=== PATIENT | male | born 1960 | race Caucasian/White ===

== ENCOUNTER 2016-11-18 05:51 | Emergency (ER) | payer OTHER ==
[2016-11-18] MEDS ORDERED: METHADONE 10 MG TAB PO STA (06:13)
--- NOTE | 2016-11-18 06:48 | ED ---
Abdominal Pain HPI - General Chief Complaint: Abdominal Pain Stated Complaint: Abdominal/Chest Pain Time Seen by Provider: 11/18/16 06:09 Source: patient, RN notes reviewed Mode of arrival: wheelchair Limitations: no limitations - History of Present Illness Initial Comments: This patient is a 56-year-old man who presents with the complaint that he is having abdominal cramping, nausea, vomiting and diarrhea. The symptoms developed over the course of last night worsening into this morning. The patient does note that yesterday he was scheduled to see Dr. John at 8:30 in the morning to have his morphine prescription refilled. He takes this for chronic back pain. The patient notes that he had slept through his appointment and when he called he was informed that he could not be fit into the clinic schedule that day and that he would have to follow up today. MD Complaint: abdominal pain -: days(s) Location: diffuse Severity: moderate Quality: cramping Associated Symptoms: nausea, vomiting, diarrhea - Related Data Home Medications Medication Instructions Recorded Confirmed Baclofen [Lioresal] 20 mg PO BID 11/18/16 11/18/16 Morphine Sulfate [Morphine Sulfate 30 mg PO BID 11/18/16 11/18/16 ER] Varenicline Tartrate [Chantix] 1 mg PO BID 11/18/16 11/18/16 Allergies Allergy/AdvReac Type Severity Reaction Status Date / Time aspirin AdvReac SKIN Verified 11/18/16 07:40 BLOTCHES Review of Systems ROS Statement: Those systems with pertinent positive or pertinent negative responses have been documented in the HPI. ROS Other: All systems not noted in ROS Statement are negative. Constitutional: Denies: fever, chills Respiratory: Denies: cough, dyspnea Cardiovascular: Denies: chest pain, palpitations, syncope Gastrointestinal: Reports: abdominal pain, nausea, vomiting, diarrhea. Denies: constipation, melena, hematochezia Genitourinary: Denies: dysuria, hematuria Musculoskeletal: Denies: back pain Skin: Denies: rash Neurological: Denies: headache, weakness, numbness Past Medical History Additional Past Medical History / Comment(s): HX HYPOGLYCEMIA, DEGENERATIVE DISC DISEASE- NECK & BACK, SLEEPS VERY POORLY, INGUINAL AND UMBILICAL HERNIA History of Any Multi-Drug Resistant Organisms: None Reported Past Surgical History: Appendectomy, Hernia Repair, Orthopedic Surgery, Tonsillectomy Additional Past Surgical History / Comment(s): SCOPE ON ONE KNEE 1994- [facility], COLONOSCOPY Past Anesthesia/Blood Transfusion Reactions: No Reported Reaction Past Psychological History: No Psychological Hx Reported Smoking Status: Current every day smoker Past Alcohol Use History: Daily, Heavy Additional Past Alcohol Use History / Comment(s): SMOKER SINCE AGE 12(1972) DRINKS 6-8 BEERS A DAY S Past Drug Use History: Marijuana Additional Drug Use History / Comment(s): USES NIGHTLY TO HELP HIM SLEEP- SLEEPS POORLY, INSTRUCTED NOT TO USE 24 HRS PRIOR TO PROCEDURE - Past Family History Father Family Medical History: COPD Additional Family Medical History / Comment(s): 11/18/2014 Brother(s) Family Medical History: Cancer Additional Family Medical History / Comment(s): PT'S YOUNGER BROTHER HAS STAGE 4 CA-STARTED IN COLON- NOW IN [place] & BON[place] General Exam Limitations: no limitations General appearance: alert, in no apparent distress Head exam: Present: atraumatic, normocephalic, normal inspection Eye exam: Present: normal appearance. Absent: scleral icterus, conjunctival injection ENT exam: Present: mucous membranes dry Respiratory exam: Present: normal lung sounds bilaterally. Absent: respiratory distress, wheezes, rales, rhonchi, stridor Cardiovascular Exam: Present: normal rhythm, tachycardia, normal heart sounds. Absent: systolic murmur, diastolic murmur, rubs, gallop GI/Abdominal exam: Present: soft, diminished bowel sounds. Absent: distended, tenderness, guarding, rebound, mass Extremities exam: Present: normal inspection, normal capillary refill. Absent: pedal edema, calf tenderness Back exam: Present: normal inspection. Absent: CVA tenderness (R), CVA tenderness (L) Neurological exam: Present: alert Skin exam: Present: warm, intact, diaphoretic. Absent: rash Course Vital Signs 11/18/16 11/18/16 06:01 08:25 Temperature 97.8 F 97.7 F Pulse Rate 116 H 106 H Respiratory 20 17 Rate Blood Pressure 103/78 113/84 O2 Sat by Pulse 99 91 L Oximetry Medical Decision Making - EKG Data -: EKG Interpreted by Ne EKG shows normal: sinus rhythm, axis (Normal), intervals (Normal) Rate: tachycardia (Rate approximately 117 bpm) Interpretation: nonspecific ST-T wave changes, other (Biatrial enlargement) Disposition Clinical Impression: Opioid withdrawal Disposition: HOME SELF-CARE Condition: Fair Instructions: Opioid Withdrawal (ED) Referrals: Blu Lane DO [Primary Care Provider] - 1-2 days
[2016-11-18] MEDS ORDERED: MORPHINE SULFATE 4 MG/ML SYRINGE IV STA (07:30)
[2016-11-18] MEDS ORDERED: ONDANSETRON 4 MG/2 ML VIAL IVP STA (07:53)
[2016-11-18 08:26] VITALS: BP 113/84; PULSE 106; RESP 17; TEMP 97.7
== END 2016-11-18 08:38 | disposition home or self-care (01) ==
LOC: EC 05:51
DX: F11.23 Opioid dependence with withdrawal (principal); R00.0 Tachycardia, unspecified; R11.2 Nausea with vomiting, unspecified; F17.200 Nicotine dependence, unspecified, uncomplicated; Z87.19 Personal history of other diseases of the digestive system; Z79.899 Other long term (current) drug therapy; Z88.6 Allergy status to analgesic agent; Z90.49 Acquired absence of other specified parts of digestive tract
CPT/HCPCS: 93005; 99284; 96374; 96375; J2270; J2405; S0109

== ENCOUNTER → 2017-12-30 | Outpatient (CLI) | payer OTHER ==
--- NOTE | 2017-12-30 12:23 | CT ---
EXAMINATION TYPE: CT chest w con DATE OF EXAM: 12/30/2017 COMPARISON: May 19, 2015 HISTORY: Pulmonary nodule CT DLP: 507 mGycm Automated exposure control for dose reduction was used. CONTRAST: CT scan of the chest is performed with IV Contrast, patient injected with 100 mL of Isovue 300. FINDINGS: LUNGS: Severe upper lobe emphysematous change. No distinct pulmonary nodule or mass. No infiltrate or volume loss. Calcified granuloma right upper lobe. MEDIASTINUM: There are no greater than 1 cm hilar or mediastinal lymph nodes. No pericardial effusi on is seen. Thoracic aorta is of normal caliber. The heart is not enlarged. UPPER ABDOMEN: No significant abnormality appreciated. OTHER: No additional significant abnormality is seen. IMPRESSION: 1. No concerning pulmonary nodule. 2. Upper lobe emphysematous change.
== END | disposition home or self-care (01) ==
LOC: RADCTMAIN 11:10
PROVIDERS: ATTEND Family Medicine
DX: J43.9 Emphysema, unspecified (principal)
CPT/HCPCS: 71260; Q9967

== ENCOUNTER → 2018-02-10 | Outpatient (CLI) | payer OTHER ==
--- NOTE | 2018-02-10 11:54 | ECHOF ---
Referral Reason:R07.9 Chest pain MEASUREMENTS -------- HEIGHT: 180.3 cm WEIGHT: 72.6 kg BP: IVSd: 0.9 cm (0.6 - 1.1) LVIDd: 3.7 cm (3.9 - 5.3) LVPWd: 1.0 cm (0.6 - 1.1) IVSs: 1.7 cm LVIDs: 2.4 cm LVPWs: 1.4 cm LAESV Index (A-L): 15.71 ml/m Ao Diam: 3.7 cm (2.0 - 3.7) AV Cusp: 1.8 cm (1.5 - 2.6) LA Diam: 2.9 cm (2.7 - 3.8) MV EXCURSION: 25.336 mm (> 18.000) MV EF SLOPE: 280 mm/s (70 - 150) EPSS: 1.2 cm MV E Nghia: 0.49 m/s MV DecT: 252 ms MV A Nghia: 0.53 m/s MV E/A Ratio: 0.93 RAP: 5.00 mmHg RVSP: 15.39 mmHg FINDINGS -------- Sinus rhythm. This was a technically good study. The left ventricular size is normal. Left ventricular wall thickness is normal. Overall left vent ricular systolic function is low-normal with, an EF between 50 - 55 %. The right ventricle is normal in size. The left atrium is normal in size. The right atrium is normal in size. The aortic valve is trileaflet, and appears structurally normal. No aortic stenosis or regurgitation. The mitral valve leaflets are mildly thickened. Mild mitral regurgitation is present. Mild tricuspid regurgitation present. The right ventricular systolic pressure, as measured by Doppl er, is 15.39mmHg. Pulmonic valve appears structurally normal. The aortic root size is normal. The pericardium is normal. CONCLUSIONS -------- 1. Sinus rhythm. 2. This was a technically good study. 3. The left ventricular size is normal. 4. Left ventricular wall thickness is normal. 5. Overall left ventricular systolic function is low-normal with, an EF between 50 - 55 %. 6. The right ventricle is normal in size. 7. The left atrium is normal in size. 8. The right atrium is normal in size. 9. The aortic valve is trileaflet, and appears structurally normal. No aortic stenosis or regurgitati on. 10. The mitral valve leaflets are mildly thickened. 11. Mild mitral regurgitation is present. 12. Mild tricuspid regurgitation present. 13. The right ventricular systolic pressure, as measured by Doppler, is 15.39mmHg. 14. Pulmonic valve appears structurally normal. 15. The aortic root size is normal. 16. The pericardium is normal. [place]: Gladys Padron RDCS
--- NOTE | 2018-02-10 14:08 | EST ---
EXERCISE STRESS AGE: 57 SEX: M HT: 70 WT: 160 PROTOCOL: Gumaro Stress Test STAGE: III DURATION OF EXERCISE: 9:00 HEART RATE REST: 83 BLOOD PRESSURE REST: 114/80 MAXIMUM HEART RATE ACHIEVED: 140 MAXIMUM BLOOD PRESSURE: 172/76 85% MPHR: 138 100% MPHR: 162 METS: 10.5 INDICATIONS: Chest pain. CLINICAL INFORMATION: STRESS DATA: Pretesting physical examination showed a heart rate of 83, pressure is 114/80 mmHg. Baseline EKG showed sinus mechanism. The patient exercised on the treadmill according to Gumaro protocol for a total of 9 minutes and achieved 10.5 METS. Max heart rate was 140, which is about 86% of maximum predicted heart rate. Maximum blood pressure was 172/76 mmHg. Clinically, the patient did not have any symptoms of chest pain or discomfort during the testing or in the recovery time. The EKG did not show any significant ST or T-wave abnormalities consistent with ischemia. CONCLUSION: 1. Excellent exercise capacity. 2. Normal EKG in response to exercise. 3. Essentially normal exercise treadmill stress test for the patient. MMODL / IJN: [id number] /
== END | disposition home or self-care (01) ==
LOC: RADECHMAIN 08:17
PROVIDERS: ATTEND Family Medicine
DX: I08.1 Rheumatic disorders of both mitral and tricuspid valves (principal)
CPT/HCPCS: 93017; 93306

== ENCOUNTER → 2018-02-21 | Day surgery (SDC) | payer OTHER ==
[2018-02-16 16:16] VITALS: BMI 22.6
[~2018-02-21] MED LIST: LACTATED RINGERS 1,000 ML IV SCH; LIDOCAINE 1% 20 ML VIAL (10MG/ML) FOR IV START INTRADERMA PRN; LIDOCAINE 1% INJ 10MG/ML (20 ML MDV) ONE; MIDAZOLAM 2 MG/2 ML VIAL ONE; PROPOFOL 10 MG/ML 20 ML VIAL IV ONE
[2018-02-21 08:50] VITALS: RESP 16; TEMP 97.9
--- NOTE | 2018-02-21 09:18 | P.GSHP ---
History of Present Illness H&P Date: 02/21/18 Chief Complaint: GERD, peptic ulcer disease, possible: This This is a 58-year-old male referred from Dr. irvin. Patient's complaints of epigastric pain and GERD. He has a history of peptic ulcer disease. Imaging performed at Dr. irvin office showed the possible colonic mass. He presents today for EGD colonoscopy. Past Medical History Past Medical History: Cancer, Osteoarthritis (OA) Additional Past Medical History / Comment(s): HX HYPOGLYCEMIA, DEGENERATIVE DISC DISEASE- NECK & BACK, SLEEPS VERY POORLY, SKIN CANCER History of Any Multi-Drug Resistant Organisms: None Reported Past Surgical History: Appendectomy, Hernia Repair, Orthopedic Surgery, Tonsillectomy Additional Past Surgical History / Comment(s): SCOPE ON ONE KNEE - EPIDURAL PAIN CLINIC, COLONOSCOPY, INGUINAL AND UMBILICAL HERNIA Past Anesthesia/Blood Transfusion Reactions: No Reported Reaction Smoking Status: Current every day smoker - Past Family History Mother Family Medical History: Cancer Additional Family Medical History / Comment(s): LEUKEMIA Father Family Medical History: COPD Additional Family Medical History / Comment(s): 11/18/2014 Brother(s) Family Medical History: Cancer Additional Family Medical History / Comment(s): PT'S YOUNGER BROTHER HAS STAGE 4 CA-STARTED IN [place]ON- NOW IN L[place] & BON[place] Medications and Allergies Home Medications Medication Instructions Recorded Confirmed Type Baclofen [Lioresal] 20 mg PO HS 11/18/16 02/21/18 History Morphine Sulfate [Morphine Sulfate 30 mg PO BID 11/18/16 02/21/18 History ER] Naproxen [Naprosyn] 500 mg PO Q12HR PRN 02/16/18 02/21/18 History Allergies Allergy/AdvReac Type Severity Reaction Status Date / Time aspirin AdvReac SKIN Verified 02/21/18 08:44 BLOTCHES" Surgical - Exam Vital Signs Temp Pulse Resp BP Pulse Ox 97.9 F 89 16 145/95 97 02/21/18 08:49 02/21/18 08:49 02/21/18 08:49 02/21/18 08:49 02/21/18 08:49 - General well developed, no distress - Eyes PERRL - ENT normal pinna - Neck no masses - Respiratory normal expansion - Cardiovascular Rhythm: regular - Abdomen Abdomen: soft, non tender Assessment and Plan Assessment: Peptic ulcer disease, possible colonic mass, we'll perform EGD and colonoscopy
--- NOTE | 2018-02-21 09:39 | P.OP ---
Date of Procedure: 02/21/18 Preoperative Diagnosis: GERD Screening colonoscopy Postoperative Diagnosis: Antral gastritis Hiatal hernia Esophagitis Normal colonoscopy to 45 cm. Procedure(s) Performed: EGD Colonoscopy Anesthesia: MAC Surgeon: Chacorta Aguirre Pathology: other (Antrum, esophagus) Condition: stable Disposition: PACU Description of Procedure: The patient's placed on the endoscopy table in the lateral position. He received IV sedation. The gastroscope was placed oropharynx and passed in the esophagus and stomach. Scope was then placed through the pylorus. The first and second portion of the duodenum appeared normal. The scope was then brought back the antrum and this appeared mildly inflamed. A biopsies performed. The scope was unretroflexed and remainder of the stomach appeared normal. The GE junction was at 38 cm. The distal esophagus was mildly inflamed a biopsies performed. The proximal esophagus appeared normal. Scope Patient. Next digital rectal exam was performed which revealed no imbalance. The possible colonoscope was then placed patient anus and passed with colon. The patient was unable to retain air at his anus. The colon could not be insufflated. At this point the scope was withdrawn the scope had been placed to approximately the 45 cm lynette. The descending colon, sigmoid colon and rectum appeared normal. Scope was withdrawn for patient. Patient was scheduled for a barium enema.
[2018-02-21 11:11] VITALS: BP 128/80; PULSE 73
--- NOTE | 2018-02-21 15:57 | FL ---
EXAMINATION TYPE: Double contrast barium enema DATE OF EXAM: 02/21/2018 CLINICAL HISTORY: 58-year-old male incomplete colonoscopy. Patient receives colonoscopy every 2 years for a strong family history. Prior benign polyp excision 2 years ago. TECHNIQUE: A double contrast barium enema study is performed. 1500 mL Polibar was utilized. COMPARISON: None. Total fluoroscopy time: 2 minutes 7 seconds. Total images: 49 FINDINGS: Claim Investigator view of the abdomen shows overall non-obstructive bowel gas pattern with residual air throughou t the colon. Coils in the pelvis and surgical clips on the left side of the pelvis likely relating to prior hernia repairs. Due to redundancy of the proximal transverse colon, there is limited coating of the cecum. No evidence of any mass or polyp, obstructing or constricting lesion throughout the colon. No signif icant diverticular disease is noted. The appendix was not filled. No reflux into the terminal ileum. IMPRESSION: No suspicious polyp or mass identified. There is slight limited coating of the cecum due to redundanc y of the proximal transverse colon.
== END ==
LOC: ORWHC2ENDO 08:31
PROVIDERS: ATTEND Surgery
DX: Z12.11 Encounter for screening for malignant neoplasm of colon (principal); K29.60 Other gastritis without bleeding; K31.9 Disease of stomach and duodenum, unspecified; K21.0 Gastro-esophageal reflux disease with esophagitis; K44.9 Diaphragmatic hernia without obstruction or gangrene; Q43.8 Other specified congenital malformations of intestine; Z87.11 Personal history of peptic ulcer disease; F17.210 Nicotine dependence, cigarettes, uncomplicated; Z85.828 Personal history of other malignant neoplasm of skin; M19.90 Unspecified osteoarthritis, unspecified site; M47.9 Spondylosis, unspecified; Z79.891 Long term (current) use of opiate analgesic; Z79.899 Other long term (current) drug therapy; Z88.6 Allergy status to analgesic agent
CPT/HCPCS: 88305; 74270; 43239; J2250; J2001; J2704; G0121

== ENCOUNTER → 2018-03-20 | Outpatient (CLI) | payer OTHER ==
--- NOTE | 2018-03-20 09:52 | MR ---
EXAMINATION TYPE: MR cspine/lspine wo con DATE OF EXAM: 03/20/2018 COMPARISON: NONE HISTORY: Spinal stenosis / Osteophyte. Cervical spine neck pain and low back pain. TECHNIQUE: Multiplanar, multisequence imaging of the cervical spine is performed without IV contrast. FINDINGS: The cervical spine vertebral bodies maintain normal vertebral body heights. There is mild retrolisthe sis of C5 on C6, likely on degenerative basis. No bone marrow edema is seen. There is straightening o f the usual cervical lordosis. Cervical cord signal is unremarkable. Visualized portions of the poste rior fossa are also grossly unremarkable. Multilevel disc desiccation is seen. C2-C3: There is mild facet arthropathy and uncovertebral hypertrophy creating mild right neural adrien inal narrowing. Spinal canal and neural foramina are patent. C3-C4: There is a small central disc osteophyte complex with uncovertebral hypertrophy and facet arth ropathy creating mild right neural foraminal narrowing, moderate left neural foraminal narrowing and mild spinal canal stenosis. C4-C5: There is a very small central disc osteophyte complex without spinal canal stenosis. Uncoverte bral hypertrophy and facet arthropathy creates moderate left neural foraminal narrowing and mild righ t neural foraminal narrowing. C5-C6: There is a broad-based disc bulge and small central disc osteophyte complex creating mild spin al canal stenosis as there is effacement of ventral subarachnoid space and abutment of the ventral th ecal sac. Additionally uncovertebral hypertrophy and facet arthropathy contribute to moderate bilater al neural foraminal narrowing. C6-C7: There is a right foraminal disc herniation creating severe right neural foraminal narrowing santiago perimposed upon a broad-based disc bulge in combination with facet arthropathy and ligamentum flavum buckling creating moderate to severe left neural foraminal narrowing and mild spinal canal stenosis. C7-T1: There is a bilobed broad-based disc bulge, facet arthropathy and uncovertebral hypertrophy cre ating severe right neural foraminal narrowing and moderate left neural foraminal narrowing. No spinal canal stenosis. CERVICAL SPINE IMPRESSION: 1. Right foraminal disc herniation at C6-C7 creating severe right neural foraminal narrowing. Additio sina degenerative changes at this level creates moderate to severe left neural foraminal narrowing a nd mild spinal canal stenosis. 2. Moderate multilevel degenerative disc disease of the cervical spine creating variable degrees of n eural foraminal narrowing and mild spinal canal stenosis at C3-C4, C5-C6 and C6-C7. 3. Retrolisthesis of C5 on C6, likely on a degenerative basis. LUMBAR SPINE: TECHNIQUE: Multiplanar, multisequence imaging of the lumbar spine is performed without IV contrast. FINDINGS: At T11-T12 there is partial visualization of at least a broad-based disc bulge only imaged on sagittal sequences. Small perineural cysts are seen of the left sacral nerve roots. Vertebral body heights and alignment are maintained. Bone marrow signal is unremarkable other than endplate degener ative change predominating at L5-S1 (Modic type II). Multilevel disc desiccation is noted. L1-L2: No significant disc disease, spinal canal stenosis or neural foraminal narrowing. L2-L3: There is a broad-based disc bulge and facet arthropathy without spinal canal stenosis or neura l foraminal narrowing. L3-L4: There is a right eccentric broad-based bulge and facet arthropathy with mild ligamentum flavum hypertrophy resulting in mild right neural foraminal narrowing. No left neural foraminal narrowing o r spinal canal stenosis. L4-L5: There is an annular tear and central disc herniation/extrusion with 3 mm of caudal extension o f the disc that is subligamentous. There is impression upon the ventral thecal sac creating mild spin al canal stenosis. Facet arthropathy and ligamentum flavum hypertrophy contribute to bilateral mild n eural foraminal narrowing. L5-S1: There is a right eccentric broad-based disc bulge creating moderate right and mild left neural foraminal narrowing. No spinal canal stenosis. LUMBAR SPINE IMPRESSION: 1. Central disc herniation/extrusion at L4-L5 with 3 mm caudal subligamentous disc extension. This re sults in mild spinal canal stenosis and mild bilateral neural foraminal narrowing. 2. Multilevel degenerative disc disease creating moderate right and mild left neural foraminal narrow ing at L5-S1.
== END | disposition home or self-care (01) ==
LOC: RADMRIMAIN 07:51
PROVIDERS: ATTEND Family Medicine
DX: M50.223 Other cervical disc displacement at C6-C7 level (principal); M48.02 Spinal stenosis, cervical region; M50.31 Other cervical disc degeneration, high cervical region
CPT/HCPCS: 72141; 72148

== ENCOUNTER → 2018-05-18 | Outpatient (CLI) | payer OTHER ==
--- NOTE | 2018-05-18 09:44 | MR ---
MR thoracic spine HISTORY: Spinal stenosis, pain, osteophyte Multiplanar multisequence imaging through the thoracic spine, correlation CT chest 12/30/2017 There is multilevel spondylosis. Thoracic vertebral bodies show preserved height and alignment. Multi level endplate discogenic marrow signal changes, Schmorl's node formations are present. There is no s ignificant foraminal encroachment or spinal stenosis. Thoracic cord signal is normal. Multilevel face t arthropathy is noted especially at the lower thoracic levels. Loss of disc height and signal at int ervertebral levels compatible disc desiccation. C7-T1 shows a small posterior broad-based disc bulge, posterior extension endplate disc complex, annie lar appearance present at T1 to with left lateral extension of endplate disc complex causing minimal anterolateral mass effect on the thecal sac. T2-3 shows posterior extension of endplate disc complex causing anterior mass effect on the thecal sa c and the paracentral locations. T3-4 shows right posterior paracentral extension of endplate disc complex causing anterolateral mass effect on the thecal sac. T4-5: Posterior central disc herniation may contact the anterior thoracic cord. T5-6 and T6-7: Small posterior disc bulge causes minimal anterior mass effect on the thecal sac. T11-T12 shows a posterior broad-based disc bulge causing minimal anterior mass effect on the thecal s ac. Apical pleural scarring is suspected. IMPRESSION: Degenerative disc disease, facet arthropathy, Schmorl's node formation. Probable apical p leural scarring, consider correlation with chest x-ray.
== END | disposition home or self-care (01) ==
LOC: RADMRIMAIN 08:17
PROVIDERS: ATTEND Family Medicine
DX: M51.34 Other intervertebral disc degeneration, thoracic region (principal); M46.84 Other specified inflammatory spondylopathies, thoracic region; M51.44 Schmorl's nodes, thoracic region; M25.78 Osteophyte, vertebrae
CPT/HCPCS: 72146

== ENCOUNTER → 2019-06-29 | Outpatient (CLI) | payer OTHER ==
--- NOTE | 2019-06-29 11:15 | US ---
EXAMINATION TYPE: US abdomen complete DATE OF EXAM: 06/29/2019 COMPARISON: NONE CLINICAL HISTORY: R19.7 Diarrhea, R14.0 Bloating, R10.84 Abd pain. EXAM MEASUREMENTS: Liver Length: 16.6 cm Gallbladder Wall: 0.3 cm CBD: 0.3 cm Spleen: 10.4 cm Right Kidney: 11.3 x 5.1 x 4.8 cm Left Kidney: 10.9 x 5.8 x 4.8 cm Pancreas: partially obscured by overlying bowel gas, portions visualized unremarkable Liver: wnl Gallbladder: gallbladder wall shows unusual contour, not seen while patient supine, but seen on doubl e check following exam Evidence for sonographic Bliss's sign: no CBD: wnl Spleen: wnl Right Kidney: wnl Left Kidney: wnl Upper IVC: wnl Abd Aorta: proximal wnl, mostly obscured by overlying bowel IMPRESSION: 1. There is some unusual contour to the gallbladder which could be related to positioning. Monitoring is recommended. 2. Minimal hepatomegaly
== END | disposition home or self-care (01) ==
LOC: RADUSMAIN 08:43
PROVIDERS: ATTEND Family Medicine
DX: R93.2 Abnormal findings on diagnostic imaging of liver and biliary tract (principal); R10.84 Generalized abdominal pain; R16.0 Hepatomegaly, not elsewhere classified; R14.0 Abdominal distension (gaseous); R19.7 Diarrhea, unspecified
CPT/HCPCS: 76700

== ENCOUNTER → 2019-07-02 | Outpatient (CLI) | payer OTHER ==
--- NOTE | 2019-07-02 10:29 | NM ---
EXAMINATION TYPE: NM hepatobiliary w EF DATE OF EXAM: 07/02/2019 COMPARISON: NONE INDICATION: R 19.7, R 14.0,R10 TECHNIQUE: After the intravenous administration of 4.5 mCi Tc 99m Mebrofenin hepatobiliary scintigrap hy is performed. Images were obtained immediately post injection. FINDINGS: There is prompt uptake and excretion of radiotracer by the liver. Extrahepatic ducts are visually identified at 11 minutes. The gallbladder is visualized within 6 minutes. Small bowel activity is noted following oral and sure At one hour 8 ounces of oral ensure plus is given to mimic CCK and gallbladder ejection fraction is c alculated at 91 %, which is markedly elevated.. (Normal >35% and <80%.). IMPRESSION: 1. Correlate for biliary hyperkinesia.
== END | disposition home or self-care (01) ==
LOC: RADNMMAIN 07:01
PROVIDERS: ATTEND Family Medicine
DX: R14.0 Abdominal distension (gaseous) (principal); R19.7 Diarrhea, unspecified
CPT/HCPCS: 78226; A9537

== ENCOUNTER 2019-08-08 06:36 | Day surgery (SDC) | payer OTHER ==
[2019-08-06 14:50] VITALS: BMI 23.6
[~2019-08-08 06:36] MED LIST changes: +DEXAMETHASONE SOD PHOSPHATE 10 MG/ML 1 ML VIAL IV ONE; +HEPARIN SODIUM,PORCINE 5,000 UNIT/ML 1 ML VIAL SQ ONE; +HYDROmorphone 0.5 MG/0.5 ML SYRINGE IVP PRN; -LIDOCAINE 1% INJ 10MG/ML (20 ML MDV) ONE; -MIDAZOLAM 2 MG/2 ML VIAL ONE; +ONDANSETRON 4 MG/2 ML VIAL IVP ONE; -PROPOFOL 10 MG/ML 20 ML VIAL IV ONE; +SCOPOLAMINE 1.5MG/72HR PATCH TRANSDERM ONE
[2019-08-08 07:37] LABS: Glucose,Whole Blood 88 mg/dL (75-99)
[2019-08-08] MEDS ORDERED: SUCCINYLCHOLINE CHLORIDE 100 MG/5 ML SYR IV ONE (07:48)
[2019-08-08] MEDS ORDERED: ePHEDrine SULFATE/0.9% NACL/PF 50 MG/5 ML SYRINGE IV ONE (07:48)
[2019-08-08] MEDS ORDERED: MIDAZOLAM 2 MG/2 ML VIAL ONE (07:48)
[2019-08-08] MEDS ORDERED: GLYCOPYRROLATE 0.2 MG/ML 2 ML VIAL ONE (07:48)
[2019-08-08] MEDS ORDERED: NEOSTIGMINE 1 MG/ML 10 ML VIAL ONE (07:48)
[2019-08-08] MEDS ORDERED: LIDOCAINE 1% INJ 10MG/ML (20 ML MDV) ONE (07:48)
[2019-08-08] MEDS ORDERED: PROPOFOL 10 MG/ML 20 ML VIAL IV ONE (07:48)
[2019-08-08] MEDS ORDERED: KETOROLAC 30 MG/ML 1 ML VIAL ONE (07:48)
[2019-08-08] MEDS ORDERED: ROCURONIUM BROMIDE 10 MG/ML 10 ML VIAL IV ONE (07:48)
[2019-08-08] MEDS ORDERED: HYDROmorphone (PF) 1 MG/ML ONE (07:48)
[2019-08-08] MEDS ORDERED: fentaNYL (PF) 50 MCG/ML 2 ML AMP ONE (07:48)
--- NOTE | 2019-08-08 08:13 | P.GSHP ---
History of Present Illness H&P Date: 08/08/19 Chief Complaint: Cholecystitis This a 59-year-old male who presents today for laparoscopic cholecystectomy. Patient's has complaints of right upper pain. His recent HIDA scan shows evidence of elevated ejection fraction. He presents today for laparoscopic cholecystectomy for biliary hypokinesis and chronic cholecystitis Past Medical History Past Medical History: GERD/Reflux Additional Past Medical History / Comment(s): HYPOGLYCEMIA, DEGENERATIVE DISC DISEASE- NECK & BACK, USES CANE PRN., HIATAL HERNIA. History of Any Multi-Drug Resistant Organisms: None Reported Past Surgical History: Appendectomy, Hernia Repair, Orthopedic Surgery, Tonsillectomy Additional Past Surgical History / Comment(s): KNEE ARTHROSCOPY., EPIDURAL PAIN [facility], COLONOSCOPY, UMBILICAL AND NUVIA INGUINAL HERNIA REPAIR. Past Anesthesia/Blood Transfusion Reactions: No Reported Reaction Past Psychological History: No Psychological Hx Reported Smoking Status: Current every day smoker Past Alcohol Use History: Daily, Heavy Additional Past Alcohol Use History / Comment(s): SMOKER SINCE AGE 12(1971) SMOKES 1 PPD. DRINKS 4-6 BEERS / DAY AND UP TO 8/DAY. Past Drug Use History: Marijuana Additional Drug Use History / Comment(s): CURRENT MARIJUANA USE - Past Family History Mother Family Medical History: Cancer Additional Family Medical History / Comment(s): LEUKEMIA Father Family Medical History: COPD Additional Family Medical History / Comment(s): 11/18/2014 Brother(s) Family Medical History: Cancer Additional Family Medical History / Comment(s): STAGE 4 COLON CANCER Medications and Allergies Home Medications Medication Instructions Recorded Confirmed Type Baclofen [Lioresal] 20 mg PO HS 11/18/16 08/08/19 History Naproxen [Naprosyn] 500 mg PO Q12HR PRN 02/16/18 08/08/19 History Acetaminophen [Acetaminophen ER] 650 mg PO DIRECTED PRN 08/06/19 08/08/19 History Omeprazole 40 mg PO DAILY 08/06/19 08/08/19 History hydrOXYzine HCL [Atarax] 25 mg PO QID PRN 08/06/19 08/06/19 History Allergies Allergy/AdvReac Type Severity Reaction Status Date / Time aspirin AdvReac EXCESSIVE Verified 08/06/19 14:12 ASPIRIN CAUSES RASH ANTIBIOTICS AdvReac Unknown STATES Uncoded 08/06/19 14:32 RASH AFTER A FEW DAYS. Surgical - Exam Vital Signs Temp Pulse Resp BP Pulse Ox 97.0 F L 93 18 147/82 96 08/08/19 06:55 08/08/19 06:55 08/08/19 06:55 08/08/19 06:55 08/08/19 06:55 - General well developed, well nourished, no distress - Eyes PERRL - ENT normal pinna - Neck no masses - Respiratory normal expansion - Cardiovascular Rhythm: regular - Abdomen Abdomen: soft, non tender Assessment and Plan Assessment: Chronic cholecystitis Right quadrant pain We'll perform laparoscopic cholecystectomy.
[2019-08-08] MEDS ORDERED: BUPIVACAINE (PF) 0.25% 30 ML VIAL SQ ONE (08:23)
[2019-08-08] MEDS ORDERED: LACTATED RINGERS 1,000 ML IV ONE (08:31)
[2019-08-08 08:53] VITALS: TEMP 97.2
--- NOTE | 2019-08-08 08:56 | P.OP ---
Date of Procedure: 08/08/19 Preoperative Diagnosis: Cholecystitis Postoperative Diagnosis: Cholecystitis Procedure(s) Performed: Laparoscopic cholecystectomy Anesthesia: FABRIZIO Surgeon: Chacorta Aguirre Estimated Blood Loss (ml): 5 Pathology: other (Gallbladder) Condition: stable Disposition: PACU Description of Procedure: The patient was placed on the operating table. The patient received a general endotracheal tube anesthesia. The patients abdomen was prepped and draped in the usual sterile fashion. Through an infraumbilical stab incision, the fascia of the anterior abdominal wall was grasped with a pair of Kochers and then the Veress needle was placed in the peritoneal cavity. Position of the Veress needle was confirmed with positive drop test. The abdomen was then insufflated. After adequate insufflation, the 10 mm trocar was placed in the peritoneal cavity. Following this the laparoscope was placed in the peritoneal cavity. The patient was placed in the head-up, right side up position and then a 5 mm trocar was placed in the right lateral and right subcostal position under direct visualization. A 8 mm trocar was placed in the epigastric position. The gallbladder was grasped in the fundus and infundibulum. Traction on the gallbladder was placed in the lateral and the cephalad positions. The triangle of Calot was visualized.. The cystic duct was bluntly dissected until the union of the cystic duct and common bile duct was seen. A critical view of safety was achieved. The cystic duct was then divided and sealed with the Harmonic scissors. A PDS Endoloop was then placed throughout the cystic duct stump. The cystic artery divided and sealed with the Harmonic scissors. The gallbladder was then removed from the liver bed using Harmonic scissors. The gallbladder was then extracted through the epigastric port site. Operative field was checked for any bleeding spots and Harmonic scissors was used to coagulate the liver bed. The abdomen was irrigated. The trocars were removed. The skin was closed using interrupted 3-0 Vicryl suture. Dermabond dressing were applied. The patient tolerated the procedure well.
[2019-08-08 09:35] VITALS: RESP 18
[2019-08-08 09:50] VITALS: BP 145/89; PULSE 6
[2019-08-08] MEDS ORDERED: HYDROcodone/APAP 5-325MG 1 EACH TAB PO ONE (09:51)
== END 2019-08-08 10:19 | disposition home or self-care (01) ==
LOC: OR 06:36
PROVIDERS: ATTEND Surgery
DX: K81.1 Chronic cholecystitis (principal); E16.2 Hypoglycemia, unspecified; K21.9 Gastro-esophageal reflux disease without esophagitis; K44.9 Diaphragmatic hernia without obstruction or gangrene; F17.210 Nicotine dependence, cigarettes, uncomplicated; Z88.6 Allergy status to analgesic agent; Z79.899 Other long term (current) drug therapy; Z87.19 Personal history of other diseases of the digestive system; Z90.49 Acquired absence of other specified parts of digestive tract; Z90.89 Acquired absence of other organs; Z87.39 Personal history of other diseases of the musculoskeletal system and connective tissue; Z98.890 Other specified postprocedural states; Z80.6 Family history of leukemia; Z82.5 Family history of asthma and other chronic lower respiratory diseases; Z80.0 Family history of malignant neoplasm of digestive organs; Z88.1 Allergy status to other antibiotic agents
CPT/HCPCS: 88304; 47562; J2250; J1644; J1100; J2710; J0690; J2405; J2001; J3010; J1885; J1170; J0330; J2704

== ENCOUNTER 2020-11-26 07:30 | Observation (INO) | payer OTHER ==
[2020-11-26] MEDS ORDERED: SODIUM CHLORIDE 0.9% 500 ML 500 ML IV ONE (07:34)
[2020-11-26 07:53] LABS: Glucose,Whole Blood 123 mg/dL (75-99)
[2020-11-26 08:01] LABS: Basophils % (A) 0 %; Eosinophils # (A) 0.1 k/uL (0-0.7); Eosinophils % (A) 1 %; HCT 38.9 % (39.0-53.0); HGB 13.4 gm/dL (13.0-17.5); Lymphocytes # (A) 0.9 k/uL (1.0-4.8); Lymphocytes % (A) 9 %; MCH 33.6 pg (25.0-35.0); MCHC 34.4 g/dL (31.0-37.0); MCV 97.5 fL (80.0-100.0); Mean Platelet Volume 6.6; Monocytes # (A) 0.5 k/uL (0-1.0); Monocytes % (A) 5 %; Neutrophils # (A) 8.2 k/uL (1.3-7.7); Neutrophils % (A) 83 %; Platelet Count 188 k/uL (150-450); RBC 3.99 m/uL (4.30-5.90); RDW 11.6 % (11.5-15.5); WBC 9.8 k/uL (3.8-10.6)
[2020-11-26 08:09] LABS: INR 0.9 (<1.2); Partial Thromboplastin Time 22.5 sec (22.0-30.0); Prothrombin Time 9.9 sec (9.0-12.0)
[2020-11-26 08:13] LABS: Calcium 8.5 mg/dL (8.4-10.2); Potassium 4.5 mmol/L (3.5-5.1); Total Protein 6.5 g/dL (6.3-8.2)
--- NOTE | 2020-11-26 08:20 | XR ---
EXAMINATION TYPE: XR chest 2V DATE OF EXAM: 11/26/2020 COMPARISON: 07/14/2009 INDICATION: Altered mental status TECHNIQUE: Single frontal view of the chest is obtained. FINDINGS: The heart size is normal. The pulmonary vasculature is normal. Minimal infiltrate may be in the right upper lobe. This is new from 2008. Follow-up can be performed. Lungs are otherwise clear. IMPRESSION: 1. Minimal infiltrate right upper lobe. Follow-up is recommended
[2020-11-26] MEDS ORDERED: cefTRIAXone IN SWFI 1,000 MG/10 ML SYRINGE IVP STA (08:55)
--- NOTE | 2020-11-26 08:55 | ED ---
General Adult HPI - General Chief complaint: Neuro Symptoms/Deficit Stated complaint: AMS Time Seen by Provider: 11/26/20 07:30 Source: patient Mode of arrival: ambulatory Limitations: no limitations - History of Present Illness Initial comments: Patient is a 60 year old male with past medical history of daily alcohol use, marijuana use, chronic pain on narcotics after he was difficult to arouse this morning. is at bedside and helps provide the history. She states that he normally wakes up around 4:30 AM to take his morning medications which include [place] and baclofen. The patient will then lay down to sleep. She attempted to arouse him near 7:30 as she was getting ready to go to work. States that she was shaking him for approximately 5 minutes without waking up. She called EMS and by the time they arrived to the house the patient was alert and answering questions appropriately. He denied any complaints. States that he did drink alcohol and smoked marijuana yesterday. He took his chronic pain medications however denies taking any excess. States that his medications have not recently changed. Upon hospital arrival the patient began having some chest pain located anterior chest wall without radiation. Denies any shortness of breath. No previous history of cardiac disease. Denies cough, fevers or chills. Patient denies any recent head injuries or falls. Patient not on anticoagulation. No headaches or visual changes. No other alleviating, precipitating or modifying factors - Related Data Home Medications Medication Instructions Recorded Confirmed Baclofen [Lioresal] 20 mg PO BID PRN 11/18/16 11/26/20 Omeprazole 40 mg PO DAILY 08/06/19 11/26/20 hydrOXYzine HCL [Atarax] 25 mg PO QID PRN 08/06/19 11/26/20 HYDROcodone/APAP 7.5-325MG [[place] 0.5 - 1 tab PO TID PRN 11/24/20 11/26/20 7.5-325] cloNIDine HCL 0.3 mg PO BID 11/26/20 11/26/20 Previous Rx's Medication Instructions Recorded Cyanocobalamin (Vitamin B-12) 1,000 mcg PO DAILY #30 tablet 11/27/20 [Vitamin B-12] Cyanocobalamin [Vitamin B-12] 1,000 mcg PO DAILY #0 tab 11/27/20 Multivitamins, Thera [Multivitamin 1 each PO DAILY tab 11/27/20 (formulary)] Nicotine 21Mg/24Hr Patch [Habitrol] 1 patch TRANSDERM DAILY #30 patch 11/27/20 Thiamine [Vitamin B-1] 100 mg PO BID-W/MEALS tab 11/27/20 Allergies Allergy/AdvReac Type Severity Reaction Status Date / Time aspirin AdvReac EXCESSIVE Verified 11/26/20 08:22 ASPIRIN CAUSES RASH ANTIBIOTICS AdvReac Unknown STATES Uncoded 11/26/20 07:38 RASH AFTER A FEW DAYS. Review of Systems ROS Statement: Those systems with pertinent positive or pertinent negative responses have been documented in the HPI. ROS Other: All systems not noted in ROS Statement are negative. Past Medical History Past Medical History: GERD/Reflux, Hypertension Additional Past Medical History / Comment(s): HYPOGLYCEMIA, DEGENERATIVE DISC DI SEASE- NECK & BACK, USES CANE PRN., HIATAL HERNIA History of Any Multi-Drug Resistant Organisms: None Reported Past Surgical History: Appendectomy, Cholecystectomy, Hernia Repair, Orthopedic Surgery, Tonsillectomy Additional Past Surgical History / Comment(s): KNEE ARTHROSCOPY., EPIDURAL [facility], COLONOSCOPY, UMBILICAL AND NUVIA INGUINAL HERNIA REPAIR. Past Anesthesia/Blood Transfusion Reactions: No Reported Reaction Past Psychological History: No Psychological Hx Reported Smoking Status: Current every day smoker Past Alcohol Use History: Daily Past Drug Use History: Marijuana - Past Family History Mother Family Medical History: Cancer Additional Family Medical History / Comment(s): LEUKEMIA Brother(s) Family Medical History: Cancer Additional Family Medical History / Comment(s): STAGE 4 COLON CANCER Father Family Medical History: COPD Additional Family Medical History / Comment(s): Father of COPD. General Exam Limitations: no limitations General appearance: alert, in no apparent distress Head exam: Present: atraumatic, normocephalic, normal inspection Eye exam: Present: normal appearance, PERRL, EOMI. Absent: scleral icterus, conjunctival injection, periorbital swelling ENT exam: Present: normal exam, mucous membranes moist Neck exam: Present: normal inspection. Absent: tenderness, meningismus, lymphadenopathy Respiratory exam: Present: normal lung sounds bilaterally. Absent: respiratory distress, wheezes, rales, rhonchi, stridor Cardiovascular Exam: Present: regular rate, normal rhythm, normal heart sounds. Absent: systolic murmur, diastolic murmur, rubs, gallop, clicks GI/Abdominal exam: Present: soft, normal bowel sounds. Absent: distended, tenderness, guarding, rebound, rigid Extremities exam: Present: normal inspection, full ROM, normal capillary refill. Absent: tenderness, pedal edema, joint swelling, calf tenderness Back exam: Present: normal inspection Neurological exam: Present: alert, oriented X3, CN II-XII intact Psychiatric exam: Present: normal affect, normal mood Skin exam: Present: warm, dry, intact, normal color. Absent: rash Course Vital Signs 11/26/20 11/26/20 11/26/20 07:31 09:21 09:47 Temperature 97.6 F Pulse Rate 82 88 86 Respiratory 18 18 18 Rate Blood Pressure 122/87 107/78 100/70 O2 Sat by Pulse 99 98 Oximetry 11/26/20 10:42 Temperature Pulse Rate 77 Respiratory 18 Rate Blood Pressure 112/78 O2 Sat by Pulse 99 Oximetry EKG Findings - EKG Comments: EKG Findings:: EKG demonstrates normal sinus rhythm with a ventricular rate of 76. [place] interval 156. QRS 84. QTC prolonged at 495. No acute ST segment elevations or depressions Medical Decision Making - Medical Decision Making On arrival patient is placed in room 8. A thorough history and physical exam was performed. Patient is alert and oriented 4 at this time. Patient placed on continuous pulse ox and cardiac monitoring. 12-lead EKG performed. IV is established patient is given a 500 bolus of normal saline. He had been previously given a 500 bolus by EMS. Laboratory studies were conducted. They do reveal sodium of 124. Urine studies are ordered. UDS demonstrates the patient is positive for marijuana and opioids. Alcohol level was 12. Patient placed on 100 mL of saline per hour. Did recommend hospital physician for chest pain and hyponatremia. Patient is scheduled for colonoscopy tomorrow therefore I will place Dr. Aguirre on consult however I do feel that the patient is not stable for procedure at this time. This is discussed with the patient is at bedside who agreed to the treatment plan. Chest x-ray is reviewed which demonstrates a right upper lobe opacity. Patient denies fevers, chills or cough. He is covered with dose of Rocephin and azithromycin. I spoke with Dr. Waddell who does present to the emergency room to evaluate the patient. Patient remained in stable condition awaiting a bed - Lab Data Result diagrams: 11/27/20 07:36 11/27/20 15:42 Lab Results 11/26/20 11/26/20 11/26/20 Range/Units 07:52 07:53 07:53 WBC 9.8 (3.8-10.6) k/uL RBC 3.99 L (4.30-5.90) m/uL Hgb 13.4 (13.0-17.5) gm/dL Hct 38.9 L (39.0-53.0) % MCV 97.5 (80.0-100.0) fL MCH 33.6 (25.0-35.0) pg MCHC 34.4 (31.0-37.0) g/dL RDW 11.6 (11.5-15.5) % Plt Count 188 (150-450) k/uL MPV 6.6 Neutrophils % 83 % Lymphocytes % 9 % Monocytes % 5 % Eosinophils % 1 % Basophils % 0 % Neutrophils # 8.2 H (1.3-7.7) k/uL Lymphocytes # 0.9 L (1.0-4.8) k/uL Monocytes # 0.5 (0-1.0) k/uL Eosinophils # 0.1 (0-0.7) k/uL Basophils # 0.0 (0-0.2) k/uL PT 9.9 (9.0-12.0) sec INR 0.9 (<1.2) APTT 22.5 (22.0-30.0) sec Sodium (137-145) mmol/L Potassium (3.5-5.1) mmol/L Chloride (98-107) mmol/L Carbon Dioxide (22-30) mmol/L Anion Gap mmol/L BUN (9-20) mg/dL Creatinine (0.66-1.25) mg/dL Est GFR (CKD-EPI)AfAm (>60 ml/min/1.73 sqM) Est GFR (CKD-EPI)NonAf (>60 ml/min/1.73 sqM) Glucose (74-99) mg/dL POC Glucose (mg/dL) 123 H (75-99) mg/dL POC Glu Instrumentation Fitter ID Dolores Parrish Osmolality (280-301) mosm/kg Calcium (8.4-10.2) mg/dL Total Bilirubin (0.2-1.3) mg/dL AST (17-59) U/L ALT (4-49) U/L Alkaline Phosphatase (38-126) U/L Creatine Kinase (55-170) U/L Troponin I (0.000-0.034) ng/mL Total Protein (6.3-8.2) g/dL Albumin (3.5-5.0) g/dL Urine Color Urine Appearance (Clear) Urine pH (5.0-8.0) Ur Specific [place] (1.001-1.035) Urine Protein (Negative) Urine Glucose (UA) (Negative) Urine Ketones (Negative) Urine Blood (Negative) Urine Nitrite (Negative) Urine Bilirubin (Negative) Urine Urobilinogen (<2.0) mg/dL Ur Leukocyte Esterase (Negative) Urine Osmolality (50-1400) mosm/kg Ur Random Sodium mmol/L Urine Opiates Screen (NotDetected) Ur Oxycodone Screen (NotDetected) Urine Methadone Screen (NotDetected) Ur Propoxyphene Screen (NotDetected) Ur Barbiturates Screen (NotDetected) U Tricyclic Antidepress (NotDetected) Ur Phencyclidine Scrn (NotDetected) Ur Amphetamines Screen (NotDetected) U Methamphetamines Scrn (NotDetected) U Benzodiazepines Scrn (NotDetected) Urine Cocaine Screen (NotDetected) U Marijuana (THC) Screen (NotDetected) Serum Alcohol mg/dL 11/26/20 11/26/20 11/26/20 Range/Units 07:53 07:53 07:53 WBC (3.8-10.6) k/uL RBC (4.30-5.90) m/uL Hgb (13.0-17.5) gm/dL Hct (39.0-53.0) % MCV (80.0-100.0) fL MCH (25.0-35.0) pg MCHC (31.0-37.0) g/dL RDW (11.5-15.5) % Plt Count (150-450) k/uL MPV Neutrophils % % Lymphocytes % % Monocytes % % Eosinophils % % Basophils % % Neutrophils # (1.3-7.7) k/uL Lymphocytes # (1.0-4.8) k/uL Monocytes # (0-1.0) k/uL Eosinophils # (0-0.7) k/uL Basophils # (0-0.2) k/uL PT (9.0-12.0) sec INR (<1.2) APTT (22.0-30.0) sec Sodium 124 L (137-145) mmol/L Potassium 4.5 (3.5-5.1) mmol/L Chloride 93 L (98-107) mmol/L Carbon Dioxide 23 (22-30) mmol/L Anion Gap 8 mmol/L BUN 4 L (9-20) mg/dL Creatinine 1.22 (0.66-1.25) mg/dL Est GFR (CKD-EPI)AfAm 74 (>60 ml/min/1.73 sqM) Est GFR (CKD-EPI)NonAf 64 (>60 ml/min/1.73 sqM) Glucose 105 H (74-99) mg/dL POC Glucose (mg/dL) (75-99) mg/dL POC Glu Instrumentation Fitter ID Osmolality (280-301) mosm/kg Calcium 8.5 (8.4-10.2) mg/dL Total Bilirubin 1.0 (0.2-1.3) mg/dL AST 51 (17-59) U/L ALT 39 (4-49) U/L Alkaline Phosphatase 66 (38-126) U/L Creatine Kinase 67 (55-170) U/L Troponin I <0.012 (0.000-0.034) ng/mL Total Protein 6.5 (6.3-8.2) g/dL Albumin 4.0 (3.5-5.0) g/dL Urine Color Yellow Urine Appearance Clear (Clear) Urine pH 5.5 (5.0-8.0) Ur Specific [place] 1.013 (1.001-1.035) Urine Protein Trace H (Negative) Urine Glucose (UA) Negative (Negative) Urine Ketones 1+ H (Negative) Urine Blood Negative (Negative) Urine Nitrite Negative (Negative) Urine Bilirubin Negative (Negative) Urine Urobilinogen <2.0 (<2.0) mg/dL Ur Leukocyte Esterase Negative (Negative) Urine Osmolality (50-1400) mosm/kg Ur Random Sodium mmol/L Urine Opiates Screen Detected H (NotDetected) Ur Oxycodone Screen Not Detected (NotDetected) Urine Methadone Screen Not Detected (NotDetected) Ur Propoxyphene Screen Not Detected (NotDetected) Ur Barbiturates Screen Not Detected (NotDetected) U Tricyclic Antidepress Not Detected (NotDetected) Ur Phencyclidine Scrn Not Detected (NotDetected) Ur Amphetamines Screen Not Detected (NotDetected) U Methamphetamines Scrn Not Detected (NotDetected) U Benzodiazepines Scrn Not Detected (NotDetected) Urine Cocaine Screen Not Detected (NotDetected) U Marijuana (THC) Screen Detected H (NotDetected) Serum Alcohol 12 mg/dL 11/26/20 11/26/20 11/26/20 Range/Units 07:53 08:56 08:56 WBC (3.8-10.6) k/uL RBC (4.30-5.90) m/uL Hgb (13.0-17.5) gm/dL Hct (39.0-53.0) % MCV (80.0-100.0) fL MCH (25.0-35.0) pg MCHC (31.0-37.0) g/dL RDW (11.5-15.5) % Plt Count (150-450) k/uL MPV Neutrophils % % Lymphocytes % % Monocytes % % Eosinophils % % Basophils % % Neutrophils # (1.3-7.7) k/uL Lymphocytes # (1.0-4.8) k/uL Monocytes # (0-1.0) k/uL Eosinophils # (0-0.7) k/uL Basophils # (0-0.2) k/uL PT (9.0-12.0) sec INR (<1.2) APTT (22.0-30.0) sec Sodium (137-145) mmol/L Potassium (3.5-5.1) mmol/L Chloride (98-107) mmol/L Carbon Dioxide (22-30) mmol/L Anion Gap mmol/L BUN (9-20) mg/dL Creatinine (0.66-1.25) mg/dL Est GFR (CKD-EPI)AfAm (>60 ml/min/1.73 sqM) Est GFR (CKD-EPI)NonAf (>60 ml/min/1.73 sqM) Glucose (74-99) mg/dL POC Glucose (mg/dL) (75-99) mg/dL POC Glu Instrumentation Fitter ID Osmolality 258 L (280-301) mosm/kg Calcium (8.4-10.2) mg/dL Total Bilirubin (0.2-1.3) mg/dL AST (17-59) U/L ALT (4-49) U/L Alkaline Phosphatase (38-126) U/L Creatine Kinase (55-170) U/L Troponin I (0.000-0.034) ng/mL Total Protein (6.3-8.2) g/dL Albumin (3.5-5.0) g/dL Urine Color Urine Appearance (Clear) Urine pH (5.0-8.0) Ur Specific [place] (1.001-1.035) Urine Protein (Negative) Urine Glucose (UA) (Negative) Urine Ketones (Negative) Urine Blood (Negative) Urine Nitrite (Negative) Urine Bilirubin (Negative) Urine Urobilinogen (<2.0) mg/dL Ur Leukocyte Esterase (Negative) Urine Osmolality 259 (50-1400) mosm/kg Ur Random Sodium <10 mmol/L Urine Opiates Screen (NotDetected) Ur Oxycodone Screen (NotDetected) Urine Methadone Screen (NotDetected) Ur Propoxyphene Screen (NotDetected) Ur Barbiturates Screen (NotDetected) U Tricyclic Antidepress (NotDetected) Ur Phencyclidine Scrn (NotDetected) Ur Amphetamines Screen (NotDetected) U Methamphetamines Scrn (NotDetected) U Benzodiazepines Scrn (NotDetected) Urine Cocaine Screen (NotDetected) U Marijuana (THC) Screen (NotDetected) Serum Alcohol mg/dL Disposition Clinical Impression: Acute encephalopathy, Hyponatremia, Alcohol use, Chest pain Disposition: ADMITTED IP TO THIS [facility] Condition: Stable Is patient prescribed a controlled substance at d/c from ED?: No Decision to Admit Reason: Admit from EC Decision Date: 11/26/20 Decision Time: 09:20
[2020-11-26] MEDS ORDERED: AZITHROMYCIN 500 MG TAB PO STA (09:18)
[2020-11-26] MEDS ORDERED: NALOXONE 0.4 MG/ML 1 ML VIAL IV PRN (09:21)
[2020-11-26 09:31] LABS: Appearance,Urine Clear (Clear); Bilirubin,Urine Negative (Negative); Blood,Urine Negative (Negative); Color,Urine Yellow; Glucose,Urine (UA) Negative (Negative); Ketones,Urine 1+ (Negative); Leukocyte Esterase,Urine Negative (Negative); Nitrite,Urine Negative (Negative); PH, Urine 5.5 (5.0-8.0); Protein,Urine Trace (Negative); Specific Gravity,Urine 1.013 (1.001-1.035); Urobilinogen,Urine <2.0 mg/dL (<2.0)
[2020-11-26] MEDS ORDERED: HYDROcodone/APAP 7.5-325MG 1 EACH TAB PO PRN (09:46)
[2020-11-26] MEDS: SODIUM CHLORIDE 0.9% 1,000 ML IV SCH ×2 (09:52→20:15)
[2020-11-26 09:53] LABS: Amphetamine Screen,Urine Not Detected (NotDetected); Barbiturate Screen,Urine Not Detected (NotDetected); Benzodiazepines Screen,Urine Not Detected (NotDetected); Cocaine Screen,Urine Not Detected (NotDetected); Methadone Screen, Urine Not Detected (NotDetected); Opiate Screen,Urine Detected (NotDetected); Oxycodone Screen, Urine Not Detected (NotDetected); Phencyclidine Screen,Urine Not Detected (NotDetected); Tricyclic Antidepressant,Urine Not Detected (NotDetected); Urn Cannabinoid Scrn Detected (NotDetected)
[2020-11-26] MEDS ORDERED: LORazepam 2 MG/ML INJ IV PRN ×3 (10:37)
--- NOTE | 2020-11-26 11:11 | P.NPCON ---
History of Present Illness - Reason for Consult hyponatremia - History of Present Illness Reason for consultation: Hyponatremia History of present illness: Patient is a 60-year-old male seen in renal consultation for hyponatremia. Sodium level 124 on admission which was this morning. He received a 500 mL bolus of normal saline and is now maintained on normal saline at 1 mL an hour. Patient presented to the hospital after he was noted to be found unresponsive this morning. Patient's partner states that she tried to wake him up and he seemed quite lethargic and unresponsive and called 911. His mentation is now fairly close to his baseline according to his partner. His blood pressure stable. His oral intake the last few days has been quite poor. He also drinks 8-10 cans of beer on a daily basis. He drinks a pot of coffee daily as well. Denies personal history of malignancy. Not on any thiazide diuretics. He did have diarrhea yesterday. No vomiting. No fever or chills. Brain CT pending. Has been voiding. No hematuria or dysuria. Denies use of nonsteroidals. No edema. Vital signs are stable. General: The patient appeared well nourished and normally developed. HEENT: Head exam is unremarkable. Neck is without jugular venous distension. LUNGS: Breath sounds decreased. HEART: Rate and Rhythm are regular. ABDOMEN: Soft, nontender. EXTREMITITES: No edema. Past Medical History Past Medical History: GERD/Reflux, Hypertension Additional Past Medical History / Comment(s): HYPOGLYCEMIA, DEGENERATIVE DISC DISEASE- NECK & BACK, USES CANE PRN., HIATAL HERNIA History of Any Multi-Drug Resistant Organisms: None Reported Past Surgical History: Appendectomy, Cholecystectomy, Hernia Repair, Orthopedic Surgery, Tonsillectomy Additional Past Surgical History / Comment(s): KNEE ARTHROSCOPY., EPIDURAL [facility], COLONOSCOPY, UMBILICAL AND NUVIA INGUINAL HERNIA REPAIR. Past Anesthesia/Blood Transfusion Reactions: No Reported Reaction Past Psychological History: No Psychological Hx Reported Smoking Status: Current every day smoker Past Alcohol Use History: Daily Past Drug Use History: Marijuana - Past Family History Mother Family Medical History: Cancer Additional Family Medical History / Comment(s): LEUKEMIA Father Family Medical History: COPD Additional Family Medical History / Comment(s): Father of COPD. Brother(s) Family Medical History: Cancer Additional Family Medical History / Comment(s): STAGE 4 COLON CANCER Medications and Allergies Home Medications Medication Instructions Recorded Confirmed Type Baclofen [Lioresal] 20 mg PO BID PRN 11/18/16 11/26/20 History Omeprazole 40 mg PO DAILY 08/06/19 11/26/20 History hydrOXYzine HCL [Atarax] 25 mg PO QID PRN 08/06/19 11/26/20 History HYDROcodone/APAP 7.5-325MG [[place] 0.5 - 1 tab PO TID PRN 11/24/20 11/26/20 History 7.5-325] lisinopriL [Zestril] 40 mg PO QAM 11/24/20 11/26/20 History cloNIDine HCL 0.3 mg PO BID 11/26/20 11/26/20 History Allergies Allergy/AdvReac Type Severity Reaction Status Date / Time aspirin AdvReac EXCESSIVE Verified 11/26/20 08:22 ASPIRIN CAUSES RASH ANTIBIOTICS AdvReac Unknown STATES Uncoded 11/26/20 07:38 RASH AFTER A FEW DAYS. Physical Exam Vitals: Vital Signs Temp Pulse Resp BP Pulse Ox 11/26/20 10:42 77 18 112/78 99 11/26/20 09:47 86 18 100/70 98 11/26/20 09:21 88 18 107/78 99 11/26/20 07:31 97.6 F 82 18 122/87 Intake and Output 11/25/20 11/26/20 11/26/20 22:59 06:59 14:59 Other: Weight 77.111 kg Results - Lab Results Most recent lab results Calcium 8.5 mg/dL (8.4-10.2) 11/26/20 07:53 11/26/20 07:53 11/26/20 07:53 Assessment and Plan Plan: Assessment: 1. Hypovolemic hyponatremia. This component of poor solute intake as his BUN i s low at 4 in the setting of excess fluid intake. Sodium level 124 this morning. 2. Benign hypertension. Controlled. 3. Alcohol abuse. Patient drinks 8-10 cans of beer daily. Plan: Decrease rate of normal saline to 50 mL an hour. Follow-up brain CT. Repeat sodium level at 2 PM today. Check urine osmolality and random urine sodium. Check TSH. Thank you for the consultation. I will continue to follow the patient with you during his hospital stay.
[2020-11-26] MEDS: NICOTINE 21MG/24HR PATCH TRANSDERM SCH (11:16)
--- NOTE | 2020-11-26 12:05 | CT ---
EXAMINATION TYPE: CT brain wo con DATE OF EXAM: 11/26/2020 COMPARISON: None INDICATION: Encephalopathy DLP: 1162.4 mGycm, Automated exposure control for dose reduction was used. CONTRAST: None CT of the brain is performed utilizing 3 mm thick sections through the posterior fossa and 3 mm thick sections through the remaining calvarium. Study is performed within 24 hours of arrival to the hosp [facility]. No abnormal hyperdensity is present to suggest an acute intracranial hemorrhage. No mass lesion is evident. No acute infarcts are evident. Small Virchow-Isaak space or tiny old lacunar infarct may be within th e left basal ganglion. Ventricles and sulci are appropriate for the patient age. There is a retention cyst or polyp within the right maxillary sinus. Tiny retention cyst or polyp is within the anterior left maxillary sinus. Right septal deviation is present. Remaining paranasal sinu ses mastoid air cells are clear. IMPRESSIONS: 1. No acute intracranial process.
--- NOTE | 2020-11-26 12:36 | P.HPIM ---
History of Present Illness H&P Date: 11/26/20 Chief Complaint: Mental status changes HISTORY OF PRESENT ILLNESS This is a 60-year-old male patient of Dr. Lane with past medical history of hypertension, gastroesophageal reflux disease, hiatal hernia, degenerative disc disease in the neck and lumbar area under the care of Dr. Zazueta receiving regular injections, alcohol abuse, tobacco use and dependence. Patient is currently drinking 8-10 beers per day for at least more than 30 years. His last alcohol intake was on Tuesday at midnight. Patient is also a smoker of one and half packs per day for 45 years. He utilizes marijuana daily. Patient lives at home with his domestic partner of 30 years. Patient apparently woke up at around 11:30 and was trying to get to the bathroom but ended up going out the front door in his underwear and walked around to the back of the house was and able to get in the back door and then walked around to the front of the door came in the house and took a shower and went back to sleep apparently. His partner was up at 4 AM getting ready to go to work and leave the house. She attempted to wake him but he did not seem to arouse normally. He also had significant sweats running down the front of his face and shaking that lasted for about 5 minutes. While patient was outside, he apparently had an diarrhea accident. He apparently has 2-3 stools per day which she calls ilene. He states he's had chills for one week. He was scheduled for EGD and colonoscopy tomorrow with Dr. Aguirre. He has had ongoing problems with early satiety and unable to eat more than 2-3 bites of a meal. This has been going on for 3-4 weeks. Her last colonoscopy found polyps and he has a colonoscopy every 2 years due to family history of colon cancer. Patient also relates that he drinks ice tea, coffee and beer. He does not drink water. He also follows with Dr. Zazueta on a regular basis. Patient has a tremor that has been worsening over the past 3-4 weeks. He apparently has had this for years and is becoming worse. Patient presented to [facility] emergency center. He was afebrile, heart rate 82, blood pressure 122/87, pulse ox 99% on room air. CBC was unremarkable. Sodium 124, potassium 4.5, chloride 93, CO2 23, BUN 4 and creatinine 1.22. Blood sugar 105. Osmolality 258. Liver function tests were normal. Troponin negative. EKG was a sinus rhythm with QTc of 495. Urinalysis showed 1+ ketones. Urine osmolality 259. Urine drug screen positive for opiates and marijuana. Serum alcohol level XII. Coronavirus not detected. Chest x-ray shows minimal infiltrate in the right upper lobe. Patient received antibiotics the form of ceftriaxone and azithromycin. Subsequently CAT scan of the brain was ordered that showed no acute intracranial process. Patient to be admitted to the cardiac stepdown unit and consult in place with a Gen. surgery, neurology and nephrology. REVIEW OF SYSTEMS Constitutional: No fever, reports chills, reports sweats. No weight change. reports weakness, reportsfatigue or lethargy. EENT: No headache. No blurred vision or double vision, no loss of vision. No loss of Hearing, no ringing in the ears, no dizziness. No nasal drainage or congestion. No epistaxis. No sore throat. Lungs: No shortness of breath, cough, no sputum production. No wheezing. Cardiovascular: No chest pain, no lower extremity edema. No palpitations. No paroxysmal nocturnal dyspnea. No orthopnea. No lightheadedness or dizziness. No syncopal episodes. Abdominal: No abdominal pain. No nausea, vomiting. No diarrhea. No constipation. No bloody or tarry stools. No loss of appetite. Reports early satiety. Genitourinary: No dysuria, increased frequency, urgency. No urinary retention. Musculoskeletal: No myalgias. No muscle weakness, no gait dysfunction, no frequent falls. No back pain. No neck pain. Integumentary: No wounds, no lesions. No rash or pruritus. No unusual bruising. No change in hair or nails. Neurologic: No aphasia. No facial droop. Reports change in mentation. No head injury. No headache. No paralysis. No paresthesia. Reports tremor. Psychiatric: No depression. No anxiety. No mood swings. Endocrine: No abnormal blood sugars. No weight change. No excessive sweating or thirst. No cold intolerance. SOCIAL HISTORY Patient is a smoker of one and a half packs per day for 45 years. He uses marijuana on a daily basis. He drinks 8-10 beers per day for more than 30 years. His last alcohol intake was Tuesday at midnight. Patient lives at home with his domestic partner.. FAMILY HISTORY Father from COPD. Mother has history of leukemia. Patient has a brother with 3 of stage IV colon cancer. PHYSICAL EXAMINATION Gen: This is a 60-year-old male. He is sitting up in the ER stretcher and appears to be in no acute distress. HEENT: Head is atraumatic, normocephalic. Pupils equal, round. Sclerae is anicteric. NECK: Supple. No JVD. No lymphadenopathy. No thyromegaly. LUNGS: Clear to auscultation. No wheezes or rhonchi. No intercostal retractions. HEART: Regular rate and rhythm. No murmur. ABDOMEN: Soft. Bowel sounds are present. No masses. No tenderness. EXTREMITIES: No pedal edema. No calf tenderness. Dorsalis pedis +2 bilaterally. NEUROLOGICAL: Patient is awake, alert and oriented x3. Cranial nerves 2 through 12 are grossly intact. Tremors noted most significantly at the left upper extremity. ASSESSMENT AND PLAN 1. Metabolic encephalopathy with unresponsive episode, multifactorial, secondary to hyponatremia, alcohol, marijuana, [place] and baclofen use. CAT scan was negative for acute findings. Consult with neurology 2. Hypovolemic hyponatremia. Nephrology consult appreciated. IV fluids decreased to 50 mL per hour. Repeat sodium at 2 PM. Check TSH. 3. Tremors possibly related to alcohol abuse. Neurology consult. Patient does follow with Dr. Zazueta in the outpatient arena. Patient states he is scheduled to have nerve testing done.. 4. Early satiety and hiatal hernia. Patient is scheduled for EGD and colonoscopy with Dr. Aguirre tomorrow. Consult with Dr. Aguirre. 5. Chronic neck and back pain secondary to degenerative disc disease, status po st injections. Tinea baclofen 20 g twice daily as needed, Lawrence 7.5 one half tablet 3 times daily as needed. 6. Alcohol abuse. Discussed cessation. Patient started on the lorazepam CIWA protocol. 7. Tobacco use and dependence. Smoking cessation. Nicotine patch 21 mg daily. 8. Daily marijuana use. 9. Possible aspiration pneumonia. Hold antibiotics at this point as it is not likely. Repeat chest x-ray tomorrow. 10. Hypertension. Continue clonidine 0.3 mg twice daily. 11. Gastroesophageal reflux disease. Continue Protonix 40 mg daily. 12. DVT prophylaxis. Heparin subcu. Patient will be admitted to the hospital for a minimum of 2 night stay. DISCHARGE PLAN Home. Impression and plan of care have been directed as dictated by the signing physician. Selena Moeller nurse practitioner acting as scribe for signing physician. Past Medical History Past Medical History: GERD/Reflux, Hypertension Additional Past Medical History / Comment(s): HYPOGLYCEMIA, DEGENERATIVE DISC DISEASE- NECK & BACK, USES CANE PRN., HIATAL HERNIA History of Any Multi-Drug Resistant Organisms: None Reported Past Surgical History: Appendectomy, Cholecystectomy, Hernia Repair, Orthopedic Surgery, Tonsillectomy Additional Past Surgical History / Comment(s): KNEE ARTHROSCOPY., EPIDURAL PAIN [facility], COLONOSCOPY, UMBILICAL AND NUVIA INGUINAL HERNIA REPAIR. Past Anesthesia/Blood Transfusion Reactions: No Reported Reaction Past Psychological History: No Psychological Hx Reported Smoking Status: Current every day smoker Past Alcohol Use History: Daily Past Drug Use History: Marijuana - Past Family History Mother Family Medical History: Cancer Additional Family Medical History / Comment(s): LEUKEMIA Brother(s) Family Medical History: Cancer Additional Family Medical History / Comment(s): STAGE 4 COLON CANCER Father Family Medical History: COPD Additional Family Medical History / Comment(s): Father of COPD. Medications and Allergies Home Medications Medication Instructions Recorded Confirmed Type Baclofen [Lioresal] 20 mg PO BID PRN 11/18/16 11/26/20 History Omeprazole 40 mg PO DAILY 08/06/19 11/26/20 History hydrOXYzine HCL [Atarax] 25 mg PO QID PRN 08/06/19 11/26/20 History HYDROcodone/APAP 7.5-325MG [[place] 0.5 - 1 tab PO TID PRN 11/24/20 11/26/20 History 7.5-325] lisinopriL [Zestril] 40 mg PO QAM 11/24/20 11/26/20 History cloNIDine HCL 0.3 mg PO BID 11/26/20 11/26/20 History Allergies Allergy/AdvReac Type Severity Reaction Status Date / Time aspirin AdvReac EXCESSIVE Verified 11/26/20 08:22 ASPIRIN CAUSES RASH ANTIBIOTICS AdvReac Unknown STATES Uncoded 11/26/20 07:38 RASH AFTER A FEW DAYS. Physical Exam Vitals: Vital Signs Temp Pulse Resp BP 11/26/20 07:31 97.6 F 82 18 122/87 Intake and Output 11/25/20 11/26/20 11/26/20 22:59 06:59 14:59 Other: Weight 77.111 kg Results CBC & Chem 7: 11/26/20 07:53 11/26/20 07:53 Labs: Abnormal Lab Results - Last 24 Hours (Table) 11/26/20 11/26/20 11/26/20 Range/Units 07:52 07:53 07:53 RBC 3.99 L (4.30-5.90) m/uL Hct 38.9 L (39.0-53.0) % Neutrophils # 8.2 H (1.3-7.7) k/uL Lymphocytes # 0.9 L (1.0-4.8) k/uL Sodium 124 L (137-145) mmol/L Chloride 93 L (98-107) mmol/L BUN 4 L (9-20) mg/dL Glucose 105 H (74-99) mg/dL POC Glucose (mg/dL) 123 H (75-99) mg/dL
--- NOTE | 2020-11-26 15:22 | P.GSCN ---
History of Present Illness Consult date: 11/26/20 History of present illness: CHIEF COMPLAINT: Altered mental status HISTORY OF PRESENT ILLNESS: This is a 60-year-old male with a known past medical history of hypertension, gastroesophageal reflux disease, hiatal hernia, degenerative disc disease in the neck and lumbar spine, alcohol abuse and tobacco use. Patient was brought into the emergency room due to altered mental status changes. Patient is confused. And history was obtained from patient's chart. Apparently patient woke up around 11:30 last night and is trying to get to the bathroom but ended up going outside in his underwear and walked around the house. Apparently while he was outside he had a diarrhea accident. He then came back into the house took a shower and went back to sleep. When his sig nificant other got up to get ready for work she tried to wake him up. But the patient would not wake up. He had significant sweats running down the front of his face and he was shaking for about 5 minutes. And then EMS was called and patient was brought into the hospital for further evaluation and treatment. Patient does report that he is only able to eat a few bites of food and then his stomach feels full. He has about 2-3 stools per day that are chunky and consistency. He does have a family history of colon cancer. Apparently he's had a colonoscopy in the past that had revealed polyps. He was scheduled for EGD and colonoscopy tomorrow with Dr. Aguirre in the outpatient setting. Since patient is hospitalized surgical consult was requested for possible EGD and colonoscopy. Patient was found to be very hyponatremic sodium level 124 and is being followed by nephrology. Afebrile. Denies any nausea or vomiting. He denies any abdominal pain. His last EGD and colonoscopy were and 2017 that showed gastritis, hiatal hernia and esophagitis a normal colonoscopy approximately to the 45 cm lynette. PAST MEDICAL HISTORY: See list. PAST SURGICAL HISTORY: See list. MEDICATIONS: See list. ALLERGIES: See list. SOCIAL HISTORY: No illicit drug use. REVIEW OF SYSTEMS: CONSTITUTIONAL: Denies fever or chills. HEENT: Denies blurred vision, vision changes, or eye pain. Denies hemoptysis CARDIOVASCULAR: Denies chest pain or pressure. RESPIRATORY: No shortness of breath. GASTROINTESTINAL: See HPI for pertinent findings HEMATOLOGIC: Denies bleeding disorders. GENITOURINARY: Denies any blood in urine or increased urinary frequency. SKIN: Denies pruitis. Denies rash. PHYSICAL EXAM: VITAL SIGNS: Reviewed GENERAL: Well-developed in no acute distress. HEENT: No sclera icterus. Extraocular movements grossly intact. Moist buccal mucosa. Head is atraumatic, normocephalic. No nasal drainage. ABDOMEN: Soft. Nondistended. Nontender NEUROLOGIC: Alert and oriented. Cranial nerves II through XII grossly intact. LABORATORY DATA: WBC 9.8 hemoglobin 13.4 sodium 124 creatinine 1.2 to UN for LFTs normal Alcohol level less than 12 Urine drug screen positive for opiates and marijuana IMAGING: Computed tomography scan of the brain negative ASSESSMENT: 1. Early satiety and history of hiatal hernia 2. Diarrhea 3. Family history of colon cancer and patient has history of colon polyps 4. Hypovolemic Hyponatremia followed by nephrology 5. Metabolic encephalopathy 6. Alcohol abuse PLAN: -We will plan for EGD and colonoscopy when patient is medically stable -Continue supportive care -Continue regular diet Thank you for this consultation Physician Regulatory And Compliance Technician note has been reviewed by physician. Signing provider agrees with the documented findings, assessment, and plan of care. Past Medical History Past Medical History: GERD/Reflux, Hypertension Additional Past Medical History / Comment(s): HYPOGLYCEMIA, DEGENERATIVE DISC DISEASE- NECK & BACK, USES CANE PRN., HIATAL HERNIA History of Any Multi-Drug Resistant Organisms: None Reported Past Surgical History: Appendectomy, Cholecystectomy, Hernia Repair, Orthopedic Surgery, Tonsillectomy Additional Past Surgical History / Comment(s): KNEE ARTHROSCOPY., EPIDURAL PA[facility], COLONOSCOPY, UMBILICAL AND NUVIA INGUINAL HERNIA REPAIR. Past Anesthesia/Blood Transfusion Reactions: No Reported Reaction Past Psychological History: No Psychological Hx Reported Smoking Status: Current every day smoker Past Alcohol Use History: Daily Past Drug Use History: Marijuana - Past Family History Mother Family Medical History: Cancer Additional Family Medical History / Comment(s): LEUKEMIA Father Family Medical History: COPD Additional Family Medical History / Comment(s): Father of COPD. Brother(s) Family Medical History: Cancer Additional Family Medical History / Comment(s): STAGE 4 COLON CANCER Medications and Allergies Home Medications Medication Instructions Recorded Confirmed Type Baclofen [Lioresal] 20 mg PO BID PRN 11/18/16 11/26/20 History Omeprazole 40 mg PO DAILY 08/06/19 11/26/20 History hydrOXYzine HCL [Atarax] 25 mg PO QID PRN 08/06/19 11/26/20 History HYDROcodone/APAP 7.5-325MG [[place] 0.5 - 1 tab PO TID PRN 11/24/20 11/26/20 History 7.5-325] lisinopriL [Zestril] 40 mg PO QAM 11/24/20 11/26/20 History cloNIDine HCL 0.3 mg PO BID 11/26/20 11/26/20 History Allergies Allergy/AdvReac Type Severity Reaction Status Date / Time aspirin AdvReac EXCESSIVE Verified 11/26/20 08:22 ASPIRIN CAUSES RASH ANTIBIOTICS AdvReac Unknown STATES Uncoded 11/26/20 07:38 RASH AFTER A FEW DAYS. Surgical - Exam Vital Signs Temp Pulse Resp BP 97.6 F 82 18 122/87 11/26/20 07:31 11/26/20 07:31 11/26/20 07:31 11/26/20 07:31 Results - Labs 11/26/20 07:53 11/26/20 07:53 Abnormal Lab Results - Last 24 Hours (Table) 11/26/20 11/26/20 11/26/20 Range/Units 07:52 07:53 07:53 RBC 3.99 L (4.30-5.90) m/uL Hct 38.9 L (39.0-53.0) % Neutrophils # 8.2 H (1.3-7.7) k/uL Lymphocytes # 0.9 L (1.0-4.8) k/uL Sodium (137-145) mmol/L Chloride (98-107) mmol/L BUN (9-20) mg/dL Glucose (74-99) mg/dL POC Glucose (mg/dL) 123 H (75-99) mg/dL Osmolality (280-301) mosm/kg Urine Protein Trace H (Negative) Urine Ketones 1+ H (Negative) Urine Opiates Screen Detected H (NotDetected) U Marijuana (THC) Screen Detected H (NotDetected) 11/26/20 11/26/20 Range/Units 07:53 07:53 RBC (4.30-5.90) m/uL Hct (39.0-53.0) % Neutrophils # (1.3-7.7) k/uL Lymphocytes # (1.0-4.8) k/uL Sodium 124 L (137-145) mmol/L Chloride 93 L (98-107) mmol/L BUN 4 L (9-20) mg/dL Glucose 105 H (74-99) mg/dL POC Glucose (mg/dL) (75-99) mg/dL Osmolality 258 L (280-301) mosm/kg Urine Protein (Negative) Urine Ketones (Negative) Urine Opiates Screen (NotDetected) U Marijuana (THC) Screen (NotDetected) Diabetes panel 11/26/20 Range/Units 07:53 Sodium 124 L (137-145) mmol/L Potassium 4.5 (3.5-5.1) mmol/L Chloride 93 L (98-107) mmol/L Carbon Dioxide 23 (22-30) mmol/L BUN 4 L (9-20) mg/dL Creatinine 1.22 (0.66-1.25) mg/dL Glucose 105 H (74-99) mg/dL Calcium 8.5 (8.4-10.2) mg/dL AST 51 (17-59) U/L ALT 39 (4-49) U/L Alkaline Phosphatase 66 (38-126) U/L Total Protein 6.5 (6.3-8.2) g/dL Albumin 4.0 (3.5-5.0) g/dL Calcium panel 11/26/20 Range/Units 07:53 Calcium 8.5 (8.4-10.2) mg/dL Albumin 4.0 (3.5-5.0) g/dL Pituitary panel 11/26/20 Range/Units 07:53 Sodium 124 L (137-145) mmol/L Potassium 4.5 (3.5-5.1) mmol/L Chloride 93 L (98-107) mmol/L Carbon Dioxide 23 (22-30) mmol/L BUN 4 L (9-20) mg/dL Creatinine 1.22 (0.66-1.25) mg/dL Glucose 105 H (74-99) mg/dL Calcium 8.5 (8.4-10.2) mg/dL Adrenal panel 11/26/20 Range/Units 07:53 Sodium 124 L (137-145) mmol/L Potassium 4.5 (3.5-5.1) mmol/L Chloride 93 L (98-107) mmol/L Carbon Dioxide 23 (22-30) mmol/L BUN 4 L (9-20) mg/dL Creatinine 1.22 (0.66-1.25) mg/dL Glucose 105 H (74-99) mg/dL Calcium 8.5 (8.4-10.2) mg/dL Total Bilirubin 1.0 (0.2-1.3) mg/dL AST 51 (17-59) U/L ALT 39 (4-49) U/L Alkaline Phosphatase 66 (38-126) U/L Total Protein 6.5 (6.3-8.2) g/dL Albumin 4.0 (3.5-5.0) g/dL
--- NOTE | 2020-11-26 16:27 | EEG ---
ELECTROENCEPHALOGRAM REPORT DATE OF SERVICE: 11/26/2020. CLINICAL HISTORY: This is a 60-year-old gentleman who had an episode of being unarousable today in the morning. The video EEG is obtained to evaluate for seizure and epileptiform activity. RELEVANT MEDICATION: The patient is not on any antiepileptic drug. EEG TYPE: A routine 21-channel EEG is performed with video using the 10/20 electrode placement system. DESCRIPTION: Wakefulness and drowsiness are obtained. During wakefulness, there is a posterior- dominant rhythm of low to moderate voltage, reactive, well modulated, of 8 to 8.5 hertz activity. During drowsiness there is slowing and attenuation of the background activity. There was no physiological stage II sleep. There are frequent runs of medium to high voltage of 1.5 hertz generalized rhythmic delta activity with frontal predominances over the bilateral hemispheres. There is no focal slowing. Interictal and ictal: None. ACTIVATION PROCEDURE: Photic stimulation did not evoke a posterior driving response. Hyperventilation is not performed. CLINICAL INTERPRETATION: This is an abnormal routine EEG. The runs of generalized rhythmic delta activity are suggestive of mild encephalopathy. There is no focal slowing, epileptiform discharges or seizure on the EEG. Clinical correlation is recommended. MMODL / IJN: [id number] / MTDD
[2020-11-26 16:58] LABS: African American GFR (CKD) >90 (>60 ml/min/1.73 sqM); Anion Gap 5 mmol/L; Blood Urea Nitrogen 7 mg/dL (9-20); Calcium 8.8 mg/dL (8.4-10.2); Carbon Dioxide 24 mmol/L (22-30); Chloride 95 mmol/L (98-107); Glucose 98 mg/dL (74-99); Non-African American GFR(CKD) >90 (>60 ml/min/1.73 sqM); Potassium 5.5 mmol/L (3.5-5.1); Sodium 124 mmol/L (137-145)
[2020-11-26] MEDS: THIAMINE 100 MG TAB PO SCH (17:01)
--- NOTE | 2020-11-26 18:02 | P.CNNES ---
History of Present Illness Consult date: 11/26/20 Requesting physician: Selena Moeller Reason for Consult: altered mental status and tremor History of Present Illness: This is a 60-year-old gentleman with medical history of hypertention, chronic pain and on narcotic, daily alcohol use and marijuana use that presented the to the [facility] emergency department on 11/26/2020 since the patient was a difficult to arouse this morning. It is documented in the ED note that the who was at bedside as she stated that the patient wakes up usually for 30 in the morning and takes his medication including [place] and baclofen but she attempted to arouse him around 7:30 and the patient's what was not arousable in which the try to shake him but unrousable. As a result EMS was called and the patient was alert and answering questions appropriately. His last alcohol use was yesterday. And denied taking any excess of the medications. According to patient he stated that the he slept at the same time yesterday and the he usually wakes up multiple times during the night because of his neck pain and back pain so he takes the [place] and takes a half a tablet every 34 hours and the last time he woke up was around the 3:30 to 4:00 in the morning today and he took his pain medication. Then that he said that that his try to wake him up but he was unarousable which is unusual. He said that his notified him that he was stressed with sweats but she didn't notice any jerking of the any of the extremities. He denies any history of seizures. He denies of any the urinary or bowel incontinence with this episode or tongue bite or feeling his tongue was sore or the being told that he had foaming around his mouth. He said that he drinks about 8 cans of 12 ounces of beer daily and yesterday he drank 6 ounces and he drank up until midnight according to him. He denies of any focal weakness, numbness, any visual disturbance or headache. He denies overdosing on his medication. The denies off any fevers cough recently. Patient said that he used to be a building construction foreman and as a result of the he had an injury at work in which he suffered neck pain and back pain and this is a chronic issue which she needs to take [place] as well as he take baclofen. He follows up with a neurologist as outpatient as well as that he said that that he was a valid by orthopedic in the past and he was told that he needed surgery for his neck since he had the significant the degenerative disease and that he was told that he has a spurs according to him and but he was told that he needed to quit smoking 4 weeks prior to the surgery but he refused according to him. He smokes 1 pack a day since the age of 12 or 13 years old. He smokes marijuana 2- 3 times a week. He is on [place] 7. 5/325 it's prescribed as 1 tablet 3 times a day but the he takes at half a tablet every 3-4 hours. Regarding his neck pain he said that the pain shoots down both his the hands as well as he has numbness associate with that as well as weakness in the hands because of that the neck pain. He also has lower back pain that radiates down the bilateral knees and sometimes he has buckling of the knees as a result. He said that he has to be cautious when he walks because of neck pain if he walks too fast or turns his head too fast he can get some dizziness. He did acknowledges that sometimes he'll have tremors or he feels jumpy of extremities because of his the chronic pain according to him. Patient will medication is baclofen 20 mg 1 tablet twice a day when necessary, [place] 7. 5/325 one tablet 3 times a day when necessary, clonidine 0.3 the milligram 1 tablet twice a day Lisinopril. Workup in the hospital consisted of: Initial vital signs is blood pressure of 122/87, heart rate of 82, respiratory of 18, temperature of 97.6 Fahrenheit oral and pulse ox of 99% room air. CT of the head is reported as no acute intracranial process. EKG was reported as normal sinus rhythm. Prolonged QT. Abnormal EKG. White blood cell is 9.8 which is normal. Initial POC glucose is 123 and a serum glucose is 105. The sodium is 124 which is low but the there is no previous electrolyte for me to compare in our facility. AST of 51 and ALT of 39. CK of 67 which is normal Urinalysis is negative for urinary tract infection Urine tox screen is positive for opiates as well as marijuana. Serum alcohol was 12 which is just above normal negative was considered less than 10. Review of Systems Review of system: The 12 point system was reviewed and apparent positive and negative per HPI. Past Medical History Past Medical History: GERD/Reflux, Hypertension Additional Past Medical History / Comment(s): HYPOGLYCEMIA, DEGENERATIVE DISC DISEASE- NECK & BACK, USES CANE PRN., HIATAL HERNIA History of Any Multi-Drug Resistant Organisms: None Reported Past Surgical History: Appendectomy, Cholecystectomy, Hernia Repair, Orthopedic Surgery, Tonsillectomy Additional Past Surgical History / Comment(s): KNEE ARTHROSCOPY., EPIDURAL PAIN [facility], COLONOSCOPY, UMBILICAL AND NUVIA INGUINAL HERNIA REPAIR. Past Anesthesia/Blood Transfusion Reactions: No Reported Reaction Past Psychological History: No Psychological Hx Reported Smoking Status: Current every day smoker Past Alcohol Use History: Daily Past Drug Use History: Marijuana - Past Family History Mother Family Medical History: Cancer Additional Family Medical History / Comment(s): LEUKEMIA Father Family Medical History: COPD Additional Family Medical History / Comment(s): Father of COPD. Brother(s) Family Medical History: Cancer Additional Family Medical History / Comment(s): STAGE 4 COLON CANCER Medications and Allergies Home Medications Medication Instructions Recorded Confirmed Type Baclofen [Lioresal] 20 mg PO BID PRN 11/18/16 11/26/20 History Omeprazole 40 mg PO DAILY 08/06/19 11/26/20 History hydrOXYzine HCL [Atarax] 25 mg PO QID PRN 08/06/19 11/26/20 History HYDROcodone/APAP 7.5-325MG [[place] 0.5 - 1 tab PO TID PRN 11/24/20 11/26/20 History 7.5-325] lisinopriL [Zestril] 40 mg PO QAM 11/24/20 11/26/20 History cloNIDine HCL 0.3 mg PO BID 11/26/20 11/26/20 History Allergies Allergy/AdvReac Type Severity Reaction Status Date / Time aspirin AdvReac EXCESSIVE Verified 11/26/20 08:22 ASPIRIN CAUSES RASH ANTIBIOTICS AdvReac Unknown STATES Uncoded 11/26/20 07:38 RASH AFTER A FEW DAYS. Physical Examination - Vital Signs Vital Signs: Vital Signs Temp Pulse Resp BP Pulse Ox 11/26/20 10:42 77 18 112/78 99 11/26/20 09:47 86 18 100/70 98 11/26/20 09:21 88 18 107/78 99 11/26/20 07:31 97.6 F 82 18 122/87 Intake and Output 11/25/20 11/26/20 11/26/20 22:59 06:59 14:59 Other: Weight 77.111 kg GENERAL: The patient is lying in bed and is not in acute distress. Seemed somewhat restless (according to him that is his baseline) CHEST: The heart rate is regular rate rhythm. No murmurs to auscultation. No carotid bruit bilaterally. LUNG: Clear to auscultation bilaterally no wheezing noted throughout. Not labored breathing. ABDOMEN/GI: Bowel sounds present in all 4 quadrants. No tenderness to palpation throughout. Mood: Tangential. NEUROLOGICAL: Higher mental function: The patient is awake, alert, oriented to self, place and time. Patient is following complex commands. No aphasia and no neglect. Cranial nerves: The pupils are round, equal and reactive to light and accommodation. Visual guillory are full to confrontation throughout. Extraocular movement is intact no nystagmus is noted. Facial sensation is normal to touch throughout. The facial strength is normal throughout. Hearing is normal bilaterally to hand rub. Tongue is midline and moved [id number] without any difficulty. No dysarthria is noted. Shoulder shrug is normal bilaterally. Motor: Gait is normal with normal arms swings. The strength is 4+ to 5- in bilateral hand (but had some pain on examination) Otherwise 5 over 5 throughout. Normal tone and bulk. Cerebellum: Normal finger to nose bilaterally. Sensation: Sensation is normal to touch throughout. Reflexes (right/left): 2+ throughout except ankles are 1+ bilaterally. Plantars are downgoing bilaterally. Results Woodard virus PCR is negative. - Laboratory Findings CBC and BMP: 11/26/20 07:53 11/26/20 16:25 Abnormal Lab Findings: Abnormal Labs 11/26/20 11/26/20 11/26/20 07:52 07:53 07:53 RBC 3.99 L Hct 38.9 L Neutrophils # 8.2 H Lymphocytes # 0.9 L Sodium Chloride BUN Glucose POC Glucose (mg/dL) 123 H Osmolality Urine Protein Trace H Urine Ketones 1+ H Urine Opiates Screen Detected H U Marijuana (THC) Screen Detected H 11/26/20 11/26/20 07:53 07:53 RBC Hct Neutrophils # Lymphocytes # Sodium 124 L Chloride 93 L BUN 4 L Glucose 105 H POC Glucose (mg/dL) Osmolality 258 L Urine Protein Urine Ketones Urine Opiates Screen U Marijuana (THC) Screen Assessment and Plan Assessment: This is a 60-year-old gentleman with chronic alcohol use, chronic pain syndrome that is on narcotic for neck pain and lower back pain that presented the to the [facility] emergency department on 11/26/2020 since the patient was a difficult to arouse this morning. Patient does not have any history of seizures. There is no jerking episode witnessed by with this episode. Patient also denies of any urinary bowel incontinence or tongue bite associate with this episode. Episode of being unarousable: Unsure exact etiology Hyponatremia likely due to alcohol use Chronic neck and lower back pain (he stated he has significant degerative changes and following up with specialist) Chronic pain syndrome due to neck pain and back pain Chronic alcohol use Marijuana use Chronic tobacco use Plan: CT of the head is reported as no acute intracranial process. I ordered routine EEG. I will not start the patient on antiepileptic drugs unless there is epileptiform discharges or seizure on EEG. I ordered TSH level. I also ordered Vitamin B12 and folate level. Recommend MRI of the brain. Patient stated he would like be discharged. So if he can get as an inpatient possibly consider as an outpatient. Consider EMG with nerve conduction study as an outpatient if the patient never got it especially that that patient is having radicular neck pain as well as lower back pain. Regarding the patient chronic neck pain as well as lower back pain that he was counseled to continue to follow up with his neurologist and even the consider seeing neurosurgeon as outpatient. Patient was started on thiamine 100 mg 1 tablet twice a day. Patient was also started on Ativan and we'll defer the management to the primary team. Patient was counseled on the alcohol cessation as well as the tobacco cessation as well. He Saw Me That He Doesn't Drink to Much Even Though He Drinks 8 Cans of 12 ounces daily. We'll defer the rest of the medical management to the primary team The plan was discussed with the patient as well as the patient's nurse. Thank you for the consultation. Viktor Claros M.D. Neuro-hospitalist Time with Patient: Greater than 30
[2020-11-26] MEDS: cloNIDine HCL 0.1 MG TAB PO SCH (20:05)
[2020-11-26] MEDS: HYDROcodone/APAP 7.5-325MG 1 EACH TAB PO PRN (20:07)
[2020-11-26] MEDS: HEPARIN SODIUM,PORCINE 5,000 UNIT/ML 1 ML VIAL SQ SCH (20:10)
[2020-11-26] MEDS: BACLOFEN 10 MG TAB PO PRN (20:20)
[2020-11-26 20:43] LABS: African American GFR (CKD) >90 (>60 ml/min/1.73 sqM); Anion Gap 6 mmol/L; Blood Urea Nitrogen 6 mg/dL (9-20); Calcium 8.7 mg/dL (8.4-10.2); Carbon Dioxide 25 mmol/L (22-30); Chloride 95 mmol/L (98-107); Glucose 92 mg/dL (74-99); Non-African American GFR(CKD) >90 (>60 ml/min/1.73 sqM); Potassium 4.8 mmol/L (3.5-5.1); Sodium 126 mmol/L (137-145)
[2020-11-27] MEDS: HYDROcodone/APAP 7.5-325MG 1 EACH TAB PO PRN ×3 (02:02→12:22)
[2020-11-27] MEDS: SODIUM CHLORIDE 0.9% 1,000 ML IV SCH (02:05)
[2020-11-27] MEDS: THIAMINE 100 MG TAB PO SCH ×2 (06:59→17:13)
--- NOTE | 2020-11-27 08:11 | XR ---
Pulmonary EXAMINATION TYPE: XR chest 2V DATE OF EXAM: 11/27/2020 COMPARISON: 11/26/20 HISTORY: Shortness of breath TECHNIQUE: Frontal and lateral views of the chest are obtained. FINDINGS: Scattered senescent parenchymal changes noted. Hyperinflation compatible with COPD. Right upper lobe infiltrate persists. Heart size is stable. Mediastinal structures are stable and grossly unremarkable. No evidence for hilar prominence. Degenerative changes dorsal spine. IMPRESSION: 1. Right upper lobe infiltrate persists.
[2020-11-27 08:21] LABS: Basophils % (A) 0 %; Eosinophils % (A) 1 %; HCT 39.7 % (39.0-53.0); HGB 13.1 gm/dL (13.0-17.5); Lymphocytes # (A) 1.3 k/uL (1.0-4.8); Lymphocytes % (A) 26 %; MCHC 32.9 g/dL (31.0-37.0); MCV 100.1 fL (80.0-100.0); Mean Platelet Volume 6.7; Monocytes # (A) 0.6 k/uL (0-1.0); Monocytes % (A) 11 %; Neutrophils % (A) 60 %; Platelet Count 199 k/uL (150-450); RBC 3.97 m/uL (4.30-5.90); RDW 11.8 % (11.5-15.5)
[2020-11-27] MEDS: cloNIDine HCL 0.1 MG TAB PO SCH (08:25)
[2020-11-27] MEDS: HEPARIN SODIUM,PORCINE 5,000 UNIT/ML 1 ML VIAL SQ SCH (08:25)
[2020-11-27] MEDS: NICOTINE 21MG/24HR PATCH TRANSDERM SCH (08:25)
[2020-11-27] MEDS: BACLOFEN 10 MG TAB PO PRN (08:30)
[2020-11-27 08:53] LABS: African American GFR (CKD) >90 (>60 ml/min/1.73 sqM); Anion Gap 7 mmol/L; Blood Urea Nitrogen 5 mg/dL (9-20); Calcium 9.3 mg/dL (8.4-10.2); Carbon Dioxide 25 mmol/L (22-30); Chloride 102 mmol/L (98-107); Glucose 120 mg/dL (74-99); Magnesium 1.9 mg/dL (1.6-2.3); Non-African American GFR(CKD) >90 (>60 ml/min/1.73 sqM); Potassium 5.7 mmol/L (3.5-5.1); Sodium 134 mmol/L (137-145)
[2020-11-27] MEDS ORDERED: PANTOPRAZOLE 40 MG TABLET PO SCH (09:00)
[2020-11-27] MEDS ORDERED: lisinopriL 20 MG TAB PO SCH (09:00)
[2020-11-27] MEDS ORDERED: MULTIVITAMINS, THERA 1 EACH TAB PO SCH (09:00)
[2020-11-27] MEDS ORDERED: DEXTROSE 50% SYRINGE 50 ML IVP STA (10:29)
[2020-11-27] MEDS ORDERED: INSULIN REGULAR 100 UNIT/ML VIAL IV ONE (10:29)
[2020-11-27] MEDS ORDERED: SODIUM CHLORIDE 0.45% 1,000 ML IV SCH (10:30)
--- NOTE | 2020-11-27 10:31 | P.PN ---
Subjective Patient is seen in follow-up for hyponatremia. Sodium level CXXXIV this morning. He is maintained on normal saline at 50 mL an hour. Oral intake is fair. No vomiting or diarrhea. Blood pressure stable. Vital signs are stable. General: The patient appeared well nourished and normally developed. HEENT: Head exam is unremarkable. Neck is without jugular venous distension. LUNGS: Breath sounds decreased. HEART: Rate and Rhythm are regular. ABDOMEN: Soft, nontender. EXTREMITITES: No edema. Objective - Vital Signs Vital signs: Vital Signs Temp 98.0 F 11/26/20 23:36 Pulse 68 11/27/20 04:00 Resp 17 11/27/20 04:00 BP 118/76 11/27/20 04:00 Pulse Ox 96 11/27/20 04:00 Intake & Output 11/26/20 11/27/20 11/27/20 18:59 06:59 18:59 Intake Total 350 Balance 350 Weight 77.111 kg 73.8 kg Intake: Intake, IV Titration 350 Amount Sodium Chloride 0.9% 1, 350 000 ml @ 50 mls/hr IV . Q20H [facility] Rx#:[id number] Other: Voiding Method Toilet # Voids 1 2 - Labs CBC & Chem 7: 11/27/20 07:36 11/27/20 07:36 Labs: Abnormal Lab Results - Last 24 Hours (Table) 11/26/20 11/26/20 11/27/20 Range/Units 16:25 20:05 07:36 RBC 3.97 L (4.30-5.90) m/uL MCV 100.1 H (80.0-100.0) fL Sodium 124 L 126 L (137-145) mmol/L Potassium 5.5 H (3.5-5.1) mmol/L Chloride 95 L 95 L (98-107) mmol/L BUN 7 L 6 L (9-20) mg/dL Glucose (74-99) mg/dL 11/27/20 Range/Units 07:36 RBC (4.30-5.90) m/uL MCV (80.0-100.0) fL Sodium 134 L (137-145) mmol/L Potassium 5.7 H (3.5-5.1) mmol/L Chloride (98-107) mmol/L BUN 5 L (9-20) mg/dL Glucose 120 H (74-99) mg/dL Assessment and Plan Plan: Assessment: 1. Hypovolemic hyponatremia. This component of poor solute intake as his BUN is low at 4 in the setting of excess fluid intake. Sodium level improved. TSH normal. Urine osmolality 259 and urine sodium less than 10. 2. Benign hypertension. Controlled. 3. Alcohol abuse. Patient drinks 8-10 cans of beer daily. 4. Hyperkalemia secondary to lisinopril. Plan: I will change IV fluids to half-normal saline to be run at 75 mL an hour. Encouraged oral intake. Potential EGD and colonoscopy this admission. Surgery following. Continue to hold lisinopril. 10 units of IV regular insulin with an amp of D50 now. Repeat BMP this evening
--- NOTE | 2020-11-27 10:48 | P.PN ---
Subjective Progress Note Date: 11/27/20 CHIEF COMPLAINT: Altered mental status HISTORY OF PRESENT ILLNESS: Patient is followed regarding early satiety in which she was scheduled for EGD and colonoscopy outpatient. Patient was able to eat half of his omelet and one sausage link this morning. He denies any abdominal pain. Denies any nausea or vomiting. Denies any difficulty swallowing. He's had no further diarrhea. He is complaining more of neck and back pain which is his chronic pain. His confusion has improved. Afebrile. WBC 5.0 Sodium level has come up to 134. Potassium is 5.7 PHYSICAL EXAM: VITAL SIGNS: Reviewed. GENERAL: Well-developed in no acute distress. HEENT: No sclera icterus. Extraocular movements grossly intact. Moist buccal mucosa. Head is atraumatic, normocephalic. ABDOMEN: Soft. Nondistended. Nontender. NEUROLOGIC: Alert and oriented. Cranial nerves II through XII grossly intact. ASSESSMENT: 1. Early satiety and history of hiatal hernia 2. Diarrhea 3. Family history of colon cancer and patient has history of colon polyps 4. Hypovolemic Hyponatremia followed by nephrology 5. Metabolic encephalopathy 6. Alcohol abuse PLAN: -Plan for EGD and colonoscopy outpatient next week, 12/04/19 -Continue supportive care -Continue regular diet -Hyperkalemia being corrected by nephrology Physician It Compliance Analyst note has been reviewed by physician. Signing provider agrees with the documented findings, assessment, and plan of care. Objective - Vital Signs Vital signs: Vital Signs Temp 98.0 F 11/26/20 23:36 Pulse 68 11/27/20 04:00 Resp 17 11/27/20 04:00 BP 118/76 11/27/20 04:00 Pulse Ox 96 11/27/20 04:00 Intake & Output 11/26/20 11/27/20 11/27/20 18:59 06:59 18:59 Intake Total 350 Balance 350 Weight 77.111 kg 73.8 kg Intake: Intake, IV Titration 350 Amount Sodium Chloride 0.9% 1, 350 000 ml @ 50 mls/hr IV . Q20H [facility] Rx#:[id number] Other: Voiding Method Toilet # Voids 1 2 - Labs CBC & Chem 7: 11/27/20 07:36 11/27/20 07:36 Labs: Abnormal Lab Results - Last 24 Hours (Table) 11/26/20 11/26/20 11/27/20 Range/Units 16:25 20:05 07:36 RBC 3.97 L (4.30-5.90) m/uL MCV 100.1 H (80.0-100.0) fL Sodium 124 L 126 L (137-145) mmol/L Potassium 5.5 H (3.5-5.1) mmol/L Chloride 95 L 95 L (98-107) mmol/L BUN 7 L 6 L (9-20) mg/dL Glucose (74-99) mg/dL 11/27/20 Range/Units 07:36 RBC (4.30-5.90) m/uL MCV (80.0-100.0) fL Sodium 134 L (137-145) mmol/L Potassium 5.7 H (3.5-5.1) mmol/L Chloride (98-107) mmol/L BUN 5 L (9-20) mg/dL Glucose 120 H (74-99) mg/dL
[2020-11-27 12:36] VITALS: RESP 16
--- NOTE | 2020-11-27 12:45 | P.PN ---
Subjective Progress Note Date: 11/27/20 Patient is in a bedside and he has not had any further episodes of unresponsiveness or no seizure-like activities. He feels he is back to baseline. His was accompanied by his significant other who is at bedside and she was telling him that he drink too much on a daily basis. Objective - Vital Signs Vital signs: Vital Signs Temp 98.0 F 11/26/20 23:36 Pulse 68 11/27/20 04:00 Resp 17 11/27/20 04:00 BP 118/76 11/27/20 04:00 Pulse Ox 96 11/27/20 04:00 Intake & Output 11/26/20 11/27/20 11/27/20 18:59 06:59 18:59 Intake Total 350 Balance 350 Weight 77.111 kg 73.8 kg Intake: Intake, IV Titration 350 Amount Sodium Chloride 0.9% 1, 350 000 ml @ 50 mls/hr IV . Q20H [facility] Rx#:[id number] Other: Voiding Method Toilet # Voids 1 2 - Exam GENERAL: The patient is lying in bed and is not in acute distress. Seemed somewhat restless (according to him that is his baseline). Mood: Tangential NEUROLOGICAL: Higher mental function: The patient is awake, alert, oriented to self, place and time. Patient is following complex commands. No aphasia and no neglect. Cranial nerves: The pupils are round, equal and reactive to light and accommodation. Visual guillory are full to confrontation throughout. Extraocular movement is intact no nystagmus is noted. Facial sensation is normal to touch throughout. The facial strength is normal throughout. Hearing is normal bilaterally to hand rub. Tongue is midline and moved [id number] without any difficulty. No dysarthria is noted. Shoulder shrug is normal bilaterally. Motor: Gait is normal with normal arms swings. The strength is 4+ to 5- in bilateral hand (but had some pain on examination) Otherwise 5 over 5 throughout. Normal tone and bulk. Cerebellum: Normal finger to nose bilaterally. Sensation: Sensation is normal to touch throughout. Reflexes (right/left): 2+ throughout except ankles are 1+ bilaterally. Plantars are downgoing bilaterally. - Labs CBC & Chem 7: 11/27/20 07:36 11/27/20 07:36 Labs: Abnormal Lab Results - Last 24 Hours (Table) 11/26/20 11/26/20 11/27/20 Range/Units 16:25 20:05 07:36 RBC 3.97 L (4.30-5.90) m/uL MCV 100.1 H (80.0-100.0) fL Sodium 124 L 126 L (137-145) mmol/L Potassium 5.5 H (3.5-5.1) mmol/L Chloride 95 L 95 L (98-107) mmol/L BUN 7 L 6 L (9-20) mg/dL Glucose (74-99) mg/dL 11/27/20 Range/Units 07:36 RBC (4.30-5.90) m/uL MCV (80.0-100.0) fL Sodium 134 L (137-145) mmol/L Potassium 5.7 H (3.5-5.1) mmol/L Chloride (98-107) mmol/L BUN 5 L (9-20) mg/dL Glucose 120 H (74-99) mg/dL Assessment and Plan Assessment: This is a 60-year-old gentleman with chronic alcohol use, chronic pain syndrome that is on narcotic for neck pain and lower back pain that presented the to the [facility] emergency department on 11/26/2020 since the patient was a difficult to arouse this morning. Patient does not have any history of seizures. There is no jerking episode witnessed by patient significant other.. Patient also denies of any urinary bowel incontinence or tongue bite associate with this episode. One Episode of being unarousable: Unsure exact etiology. Likely as result of heavy alcohol use and has history of pain use and lack of sleep that caused him to be more sleepy. Unlikely seizure. Hyponatremia likely due to alcohol use Borderline low normal Vitamin B12 (316) likely due to heavy alcohol use. Chronic neck and lower back pain (he stated he has significant degerative ch anges and following up with specialist) Chronic pain syndrome due to neck pain and back pain Chronic alcohol use Marijuana use Chronic tobacco use Plan: CT of the head is reported as no acute intracranial process. Routine EEG on 11/26/2020: There are runs of generalized rhythmic delta activity suggestive of mild encephalopathy. There are no focal slowing, septal form discharges or seizure in the EEG. Vitamin B12 (316) because it is low normal. I will start the patient on Vitamin B12 1000mcg daily. TSH level: 1.050 (normal) folate level: pending. Recommend MRI of the brain and can be done as outpatient (since unlikely patient will lie still for the exam). Consider EMG with nerve conduction study as an outpatient if the patient never got it especially that that patient is having radicular neck pain as well as lower back pain. Regarding the patient chronic neck pain as well as lower back pain that he was counseled to continue to follow up with his neurologist and even to consider seeing neurosurgeon as outpatient. He stated that he follows up with Dr. Zazueta for his neck pain (neurologist). Patient was started on thiamine 100 mg 1 tablet twice a day. Patient was also started on Ativan and we'll defer the management to the primary team. Patient was counseled on the alcohol cessation as well as the tobacco cessation as well. He Doesn't think he drinks too Much Even Though He Drinks 8 Cans of 12 ounces daily. We'll defer the rest of the medical management to the primary team From neurology perspective patient is clear for Colonoscopy or EGD. There is no further work-up needed at this time. The plan was discussed with the patient as well as the patient's nurse. Viktor Claros M.D. Neuro-hospitalist Time with Patient: Less than 30
[2020-11-27] MEDS ORDERED: CYANOCOBALAMIN 500 MCG TAB PO SCH (13:00)
--- NOTE | 2020-11-27 13:14 | P.DS ---
Providers Date of admission: 11/26/20 09:21 Attending physician: Enma Waddell MD Consults: 11/26/20 09:45 Consult Physician Urgent Consulting Provider: Chacorta Aguirre Consult Reason/Comments: abd pain, diarrhea, schedule colonoscopy tomorrow Do you want consulting provider notified?: Yes 11/26/20 10:41 Consult Physician Routine Consulting Provider: Viktor Claros Consult Reason/Comments: encephalopathy, tremors. Do you want consulting provider notified?: Yes 11/26/20 10:51 Consult Physician Routine Consulting Provider: Kali Chery Consult Reason/Comments: Elevated NA Do you want consulting provider notified?: Already Contacted Primary care physician: [facility] Course: This is a 60-year-old male patient of Dr. Lane with past medical history of hypertension, gastroesophageal reflux disease, hiatal hernia, degenerative disc disease in the neck and lumbar area under the care of Dr. Zazueta receiving regular injections, alcohol abuse, tobacco use and dependence. Patient is currently drinking 8-10 beers per day for at least more than 30 years. His last alcohol intake was on Tuesday at midnight. Patient is also a smoker of one and half packs per day for 45 years. He utilizes marijuana daily. Patient lives at home with his domestic partner of 30 years. Patient apparently woke up at around 11:30 and was trying to get to the bathroom but end ed up going out the front door in his underwear and walked around to the back of the house was and able to get in the back door and then walked around to the front of the door came in the house and took a shower and went back to sleep apparently. His partner was up at 4 AM getting ready to go to work and leave the house. She attempted to wake him but he did not seem to arouse normally. He also had significant sweats running down the front of his face and shaking that lasted for about 5 minutes. While patient was outside, he apparently had an diarrhea accident. He apparently has 2-3 stools per day which she calls indynky. He states he's had chills for one week. He was scheduled for EGD and colonoscopy tomorrow with Dr. Aguirre. He has had ongoing problems with early satiety and unable to eat more than 2-3 bites of a meal. This has been going on for 3-4 weeks. Her last colonoscopy found polyps and he has a colonoscopy every 2 years due to family history of colon cancer. Patient also relates that he drinks ice tea, coffee and beer. He does not drink water. He also follows with Dr. Zazueta on a regular basis. Patient has a tremor that has been worsening over the past 3-4 weeks. He apparently has had this for years and is becoming worse. Patient presented to [facility] emergency center. He was afebrile, heart rate 82, blood pressure 122/87, pulse ox 99% on room air. CBC was unremarkable. Sodium 124, potassium 4.5, chloride 93, CO2 23, BUN 4 and creatinine 1.22. Blood sugar 105. Osmolality 258. Liver function tests were normal. Troponin negative. EKG was a sinus rhythm with QTc of 495. Urinalysis showed 1+ ketones. Urine osmolality 259. Urine drug screen positive for opiates and marijuana. Serum alcohol level XII. Coronavirus not detected. Chest x-ray shows minimal infiltrate in the right upper lobe. Patient received antibiotics the form of ceftriaxone and azithromycin. Subsequently CAT scan of the brain was ordered that showed no acute intracranial process. Patient to be admitted to the cardiac stepdown unit and consult in place with a Gen. surgery, neurology and nephrology. 11/27 patient examined at that site. Patient is back to his baseline mental status evaluated by neurology. Patient's change in mental status is likely secondary to medication, alcohol use, hyponatremia and dehydration. EEG was obtained did not show any seizure-like activity though does activity was noted suggestive of mild encephalopathy. Patient was also found to have borderline B12 for [id number] supplementation will be provided. Hyponatremia is corrected with a sodium of 134 today. Nephrology evaluated the patient recommended electrolyte supplementation for hyponatremia. Patient's hyponatremia is secondary to dehydration, lack of electrolytes and the report of monse. Hyper kalemia is likely secondary to being on losartan will hold. Patient was evaluated by surgery who presented to endoscopy and colonoscopy when patient is clinically stable. Patient encouraged to drink fluids and stop drinking alcohol. Patient feels he does not drink enough alcohol and does understand the consequences of drinking alcohol. Nicotine patches prescribed for tobacco abuse Discharge diagnoses Hypovolemic hyponatremia secondary to be a portal monse Hyperkalemia secondary to ALEXANDR inhibitor B12 deficiency Acute metabolic encephalopathy, resolved Early satiety and hiatal hernia Chronic neck and back pain secondary to degenerative disc disease Alcohol abuse Tobacco use and dependence Daily marijuana use Protein energy malnutrition, mild Hypertension GERD PHYSI SEVERINO EXAMINATION Gen: This is a 60-year-old male. appears to be in no acute distress. HEENT: Head is atraumatic, normocephalic. Pupils equal, round. Sclerae is anicteric. NECK: Supple. No JVD. No lymphadenopathy. No thyromegaly. LUNGS: Clear to auscultation. No wheezes or rhonchi. No intercostal retractio ns. HEART: Regular rate and rhythm. No murmur. ABDOMEN: Soft. Bowel sounds are present. No masses. No tenderness. EXTREMITIES: No pedal edema. No calf tenderness. Dorsalis pedis +2 bilaterally. NEUROLOGICAL: Patient is awake, alert and oriented x3. Cranial nerves 2 through 12 are grossly intact. Tremor noted in the left upper extremity has improved Disposition home with self-care Patient Condition at Discharge: Stable Plan - Discharge Summary Discharge Rx Participant: No New Discharge Prescriptions: New Nicotine 21Mg/24Hr Patch [Habitrol] 1 patch TRANSDERM DAILY #30 patch Multivitamins, Thera [Multivitamin (formulary)] 1 each PO DAILY tab Thiamine [Vitamin B-1] 100 mg PO BID-W/MEALS tab Cyanocobalamin [Vitamin B-12] 1,000 mcg PO DAILY #0 tab Continue Baclofen [Lioresal] 20 mg PO BID PRN PRN Reason: Muscle Spasm hydrOXYzine HCL [Atarax] 25 mg PO QID PRN PRN Reason: Anxiety Omeprazole 40 mg PO DAILY HYDROcodone/APAP 7.5-325MG [[place] 7.5-325] 0.5 - 1 tab PO TID PRN PRN Reason: Pain cloNIDine HCL 0.3 mg PO BID Discontinued lisinopriL [Zestril] 40 mg PO QAM Discharge Medication List Baclofen [Lioresal] 20 mg PO BID PRN 11/18/16 [History] Omeprazole 40 mg PO DAILY 08/06/19 [History] hydrOXYzine HCL [Atarax] 25 mg PO QID PRN 08/06/19 [History] HYDROcodone/APAP 7.5-325MG [[place] 7.5-325] 0.5 - 1 tab PO TID PRN 11/24/20 [History] cloNIDine HCL 0.3 mg PO BID 11/26/20 [History] Cyanocobalamin [Vitamin B-12] 1,000 mcg PO DAILY #0 tab 11/27/20 [Rx] Multivitamins, Thera [Multivitamin (formulary)] 1 each PO DAILY tab 11/27/20 [Rx] Nicotine 21Mg/24Hr Patch [Habitrol] 1 patch TRANSDERM DAILY #30 patch 11/27/20 [Rx] Thiamine [Vitamin B-1] 100 mg PO BID-W/MEALS tab 11/27/20 [Rx] Follow up Appointment(s)/Referral(s): Krissy Zazueta MD [Medical Doctor] - [address] DO [Primary Care Provider] - 1-2 days Discharge Disposition: HOME SELF-CARE
[2020-11-27 16:30] LABS: African American GFR (CKD) >90 (>60 ml/min/1.73 sqM); Anion Gap 2 mmol/L; Blood Urea Nitrogen 8 mg/dL (9-20); Calcium 8.7 mg/dL (8.4-10.2); Carbon Dioxide 26 mmol/L (22-30); Chloride 100 mmol/L (98-107); Glucose 101 mg/dL (74-99); Non-African American GFR(CKD) 90 (>60 ml/min/1.73 sqM); Potassium 4.9 mmol/L (3.5-5.1); Sodium 128 mmol/L (137-145)
[2020-11-27 16:31] VITALS: BP 151/95; PULSE 83; TEMP 97.8
== END 2020-11-27 18:38 | disposition home or self-care (01) ==
LOC: EC 07:30 → INTOOBSV 09:21 → 3SCARD 09:21 → UNDODISIN 11-27 18:38
PROVIDERS: ADMIT Internal Medicine; ATTEND Internal Medicine
DX: E87.1 Hypo-osmolality and hyponatremia (principal); E86.1 Hypovolemia; E87.5 Hyperkalemia; E53.8 Deficiency of other specified B group vitamins; G93.41 Metabolic encephalopathy; R68.81 Early satiety; K44.9 Diaphragmatic hernia without obstruction or gangrene; K21.00 Gastro-esophageal reflux disease with esophagitis, without bleeding; G89.4 Chronic pain syndrome; M50.30 Other cervical disc degeneration, unspecified cervical region; M51.36 Other intervertebral disc degeneration, lumbar region; I10 Essential (primary) hypertension; R19.7 Diarrhea, unspecified; R07.9 Chest pain, unspecified; E44.1 Mild protein-calorie malnutrition; Z68.23 Body mass index [BMI] 23.0-23.9, adult; R94.31 Abnormal electrocardiogram [ECG] [EKG]; F10.10 Alcohol abuse, uncomplicated; F12.90 Cannabis use, unspecified, uncomplicated; R61 Generalized hyperhidrosis; R68.83 Chills (without fever); M54.5 Low back pain; E16.2 Hypoglycemia, unspecified; E86.0 Dehydration; K29.70 Gastritis, unspecified, without bleeding; Z79.899 Other long term (current) drug therapy; Z79.891 Long term (current) use of opiate analgesic; Z88.6 Allergy status to analgesic agent; Z88.1 Allergy status to other antibiotic agents; Z90.49 Acquired absence of other specified parts of digestive tract; Z98.890 Other specified postprocedural states; F17.210 Nicotine dependence, cigarettes, uncomplicated; Z86.010 Personal history of colon polyps; Z87.19 Personal history of other diseases of the digestive system; Z80.6 Family history of leukemia; Z80.0 Family history of malignant neoplasm of digestive organs; Z82.5 Family history of asthma and other chronic lower respiratory diseases; Z20.822 Contact with and (suspected) exposure to COVID-19; T46.4X5A Adverse effect of angiotensin-converting-enzyme inhibitors, initial encounter; Y90.0 Blood alcohol level of less than 20 mg/100 ml
CPT/HCPCS: 96372 ×2; 96375; 96361; 96374; 99285; 36415; 95819; 93005; 84300; 82747; 83930; 80053; 80048 ×2; 84443; 82607; 82550; 83735; 84484; 85025 ×2; 85610; 85730; 81003; 83935 ×2; 80306; 87635; 71046 ×2; 70450; G0378 ×2; G0480; S4990 ×2; J1644 ×2; J0696; 80320

== ENCOUNTER 2020-12-04 07:48 | Day surgery (SDC) | payer OTHER ==
[2020-12-02 14:13] VITALS: BMI 23.2
[~2020-12-04 07:48] MED LIST changes: -DEXAMETHASONE SOD PHOSPHATE 10 MG/ML 1 ML VIAL IV ONE; -HEPARIN SODIUM,PORCINE 5,000 UNIT/ML 1 ML VIAL SQ ONE; -HYDROmorphone 0.5 MG/0.5 ML SYRINGE IVP PRN; +LIDOCAINE 1% (10MG/ML) FOR IV START INTRADERMA PRN; -LIDOCAINE 1% 20 ML VIAL (10MG/ML) FOR IV START INTRADERMA PRN; -ONDANSETRON 4 MG/2 ML VIAL IVP ONE; -SCOPOLAMINE 1.5MG/72HR PATCH TRANSDERM ONE
[2020-12-04 08:23] VITALS: TEMP 97.8
[2020-12-04 08:30] LABS: Glucose,Whole Blood 107 mg/dL (75-99)
[2020-12-04] MEDS ORDERED: PROPOFOL 10 MG/ML 20 ML VIAL IV ONE (08:46)
--- NOTE | 2020-12-04 08:54 | P.GSHP ---
History of Present Illness H&P Date: 12/04/20 Chief Complaint: Dysphagia, screening colonoscopy This 60-year-old male been sick for EGD and screening colonoscopy. He's had some issues with dysphagia. Had previous colon polyps Past Medical History Past Medical History: GERD/Reflux, Hypertension Additional Past Medical History / Comment(s): HYPOGLYCEMIA, DEGENERATIVE DISC DISEASE- NECK & BACK, USES CANE PRN., HIATAL HERNIA History of Any Multi-Drug Resistant Organisms: None Reported Past Surgical History: Appendectomy, Cholecystectomy, Hernia Repair, Orthopedic Surgery, Tonsillectomy Additional Past Surgical History / Comment(s): KNEE ARTHROSCOPY., EPIDURAL [facility], COLONOSCOPY, UMBILICAL AND NUVIA INGUINAL HERNIA REPAIR. Past Anesthesia/Blood Transfusion Reactions: No Reported Reaction Smoking Status: Current every day smoker - Past Family History Mother Family Medical History: Cancer Additional Family Medical History / Comment(s): LEUKEMIA Father Family Medical History: COPD Additional Family Medical History / Comment(s): Father of COPD. Brother(s) Family Medical History: Cancer Additional Family Medical History / Comment(s): STAGE 4 COLON CANCER Medications and Allergies Home Medications Medication Instructions Recorded Confirmed Type Baclofen [Lioresal] 20 mg PO BID PRN 11/18/16 12/04/20 History Omeprazole 40 mg PO DAILY 08/06/19 12/04/20 History hydrOXYzine HCL [Atarax] 25 mg PO QID PRN 08/06/19 12/04/20 History HYDROcodone/APAP 7.5-325MG [[place] 0.5 - 1 tab PO TID PRN 11/24/20 12/04/20 History 7.5-325] cloNIDine HCL 0.3 mg PO BID 11/26/20 12/04/20 History Cyanocobalamin (Vitamin B-12) 1,000 mcg PO DAILY #30 tablet 11/27/20 12/04/20 Rx [Vitamin B-12] Multivitamins, Thera [Multivitamin 1 each PO DAILY tab 11/27/20 12/04/20 Rx (formulary)] Nicotine 21Mg/24Hr Patch [Habitrol] 1 patch TRANSDERM DAILY #30 patch 11/27/20 12/04/20 Rx Thiamine [Vitamin B-1] 100 mg PO BID-W/MEALS tab 11/27/20 12/04/20 Rx Allergies Allergy/AdvReac Type Severity Reaction Status Date / Time aspirin AdvReac EXCESSIVE Verified 12/04/20 08:11 ASPIRIN CAUSES RASH ANTIBIOTICS AdvReac Unknown STATES Uncoded 12/04/20 08:11 RASH AFTER A FEW DAYS. Surgical - Exam Vital Signs Temp Pulse Resp BP Pulse Ox 97.8 F 71 18 130/66 97 12/04/20 08:18 12/04/20 08:18 12/04/20 08:18 12/04/20 08:18 12/04/20 08:18 - General well developed, well nourished, no distress - Eyes PERRL - ENT normal pinna - Neck no masses - Respiratory normal expansion - Cardiovascular Rhythm: regular - Abdomen Abdomen: soft, non tender Results - Labs Abnormal Lab Results - Last 24 Hours (Table) 12/04/20 Range/Units 08:27 POC Glucose (mg/dL) 107 H (75-99) mg/dL Assessment and Plan Assessment: Dysphagia. We'll perform EGD. We'll also perform screening colonoscopy.
--- NOTE | 2020-12-04 09:13 | P.OP ---
Date of Procedure: 12/04/20 Preoperative Diagnosis: Dysphagia Screening colonoscopy Postoperative Diagnosis: Total: Mild antral gastritis Mild esophagitis Procedure(s) Performed: EGD Colonoscopy Anesthesia: MAC Surgeon: Chacorta Aguirre Pathology: other (Antrum, esophagus) Condition: stable Disposition: PACU Description of Procedure: The patient's placed on the endoscopy table in the lateral position. He received IV sedation. The gastroscope was oropharynx passed in the esophagus and stomach. Scope was placed through the pylorus. The first and second portion of the duodenum. Normal. Scope was brought back the antrum this. Mildly inflamed. A biopsies performed. Scope was unretroflexed and remainder of the stomach appeared normal. The GE junction was at 40 cm. The distal esophagus was mildly inflamed a biopsies performed. The proximal esophagus appeared normal. Scope was withdrawn for patient. Next, digital rectal exam was performed. Digital rectal examination was performed which revealed no abnormalities. The prostate was symmetrical without nodules. Flexible colonoscope was then placed in the patient's anus and passed throughout the entire colon. The ileocecal valve was visualized. The cecum, ascending, transverse, descending and sigmoid colon were normal. The rectum was normal as well. There were no masses, polyps or diverticula noted in the entire colon.
[2020-12-04 09:30] VITALS: BP 145/86; PULSE 75; RESP 18
== END 2020-12-04 10:03 | disposition home or self-care (01) ==
LOC: ORWHC2ENDO 07:48
PROVIDERS: ATTEND Surgery
DX: Z12.11 Encounter for screening for malignant neoplasm of colon (principal); K31.9 Disease of stomach and duodenum, unspecified; K44.9 Diaphragmatic hernia without obstruction or gangrene; K21.00 Gastro-esophageal reflux disease with esophagitis, without bleeding; I10 Essential (primary) hypertension; E16.2 Hypoglycemia, unspecified; Z90.49 Acquired absence of other specified parts of digestive tract; Z90.89 Acquired absence of other organs; Z98.890 Other specified postprocedural states; F17.200 Nicotine dependence, unspecified, uncomplicated; Z80.6 Family history of leukemia; Z82.5 Family history of asthma and other chronic lower respiratory diseases; Z79.899 Other long term (current) drug therapy; Z88.6 Allergy status to analgesic agent; Z88.1 Allergy status to other antibiotic agents
CPT/HCPCS: 88305; 43239; J2704; G0121

== ENCOUNTER 2023-03-31 07:48 | Day surgery (SDC) | payer OTHER ==
[2023-03-30 10:35] VITALS: BMI 19.3
[~2023-03-31 07:48] MED LIST changes: -LIDOCAINE 1% (10MG/ML) FOR IV START INTRADERMA PRN
[2023-03-31 08:22] VITALS: TEMP 96.9
[2023-03-31] MEDS ORDERED: PROPOFOL 10 MG/ML 20 ML VIAL IV ONE (08:44)
[2023-03-31] MEDS ORDERED: LIDOCAINE 2% INJ 20 MG/ML (2 ML VIAL) ONE (08:44)
--- NOTE | 2023-03-31 08:47 | P.GSHP ---
History of Present Illness H&P Date: 03/31/23 Chief Complaint: Family history colonic Cancer, GERD This is a 63-year-old male presents today for colonoscopy and EGD. Patient's family history of colon cancer. Patient also has history of GERD and has a known hiatal hernia Past Medical History Past Medical History: GERD/Reflux, Hypertension Additional Past Medical History / Comment(s): DEGENERATIVE DISC DISEASE- NECK & BACK, USES CANE PRN., HIATAL HERNIA, History of Any Multi-Drug Resistant Organisms: None Reported Past Surgical History: Appendectomy, Cholecystectomy, Hernia Repair, Orthopedic Surgery, Tonsillectomy Additional Past Surgical History / Comment(s): LT KNEE ARTHROSCOPY., EPIDURAL [facility], COLONOSCOPY, UMBILICAL AND NUVIA INGUINAL HERNIA REPAIR. Past Anesthesia/Blood Transfusion Reactions: No Reported Reaction Smoking Status: Current every day smoker - Past Family History Mother Family Medical History: Cancer Additional Family Medical History / Comment(s): LEUKEMIA Father Family Medical History: COPD Additional Family Medical History / Comment(s): Father of COPD. Brother(s) Family Medical History: Cancer Additional Family Medical History / Comment(s): STAGE 4 COLON CANCER Medications and Allergies Home Medications Medication Instructions Recorded Confirmed Type Baclofen [Lioresal] 20 mg PO BID PRN 11/18/16 03/31/23 History Omeprazole 40 mg PO DAILY 08/06/19 03/31/23 History hydrOXYzine HCL [Atarax] 25 mg PO QID PRN 08/06/19 03/31/23 History cloNIDine HCL [Catapres] 0.3 mg PO BID 11/26/20 03/31/23 History Cyanocobalamin (Vitamin B-12) 1,000 mcg PO DAILY #30 tablet 11/27/20 03/31/23 Rx [Vitamin B-12] Multivitamins, Thera [Multivitamin 1 each PO DAILY tab 11/27/20 03/30/23 Rx (formulary)] Thiamine [Vitamin B-1] 100 mg PO BID-W/MEALS tab 11/27/20 03/31/23 Rx Morphine Sulfate [Ms Contin] 30 mg PO TID 03/30/23 03/31/23 History Allergies Allergy/AdvReac Type Severity Reaction Status Date / Time aspirin AdvReac EXCESSIVE Verified 03/31/23 08:24 ASPIRIN CAUSES RASH ANTIBIOTICS AdvReac Unknown STATES Uncoded 03/31/23 08:24 RASH AFTER A FEW DAYS. Surgical - Exam Vital Signs Temp Pulse Resp BP Pulse Ox 96.9 F L 102 H 16 147/89 99 03/31/23 08:21 03/31/23 08:21 03/31/23 08:21 03/31/23 08:21 03/31/23 08:21 - General well developed, well nourished, no distress - Eyes PERRL - ENT normal pinna - Neck no masses - Respiratory normal expansion - Cardiovascular Rhythm: regular - Abdomen Abdomen: soft, non tender Assessment and Plan Assessment: GERD. We'll perform EGD. We'll perform colonoscopy due to family history of colon cancer
--- NOTE | 2023-03-31 09:08 | P.OP ---
Date of Procedure: 03/31/23 Preoperative Diagnosis: Family history: Cancer GERD Postoperative Diagnosis: Antral gastritis Small sliding hiatal hernia Esophagitis Normal colon visualized to right colon. Poor colon prep Procedure(s) Performed: Colonoscopy Anesthesia: MAC Surgeon: Chacorta Aguirre Pathology: other (Antrum, esophagus) Condition: stable Disposition: PACU Description of Procedure: The patient's placed on the endoscopy table in the lateral position. He received IV sedation. The gastroscope placed oropharynx passed in the esophagus and stomach. Scope was placed pylorus. The first and second portion of the duodenum appeared normal. Scope summer back the antrum and this appeared mildly inflamed. A biopsies performed. The scope was then retroflexed and the remainder of the stomach appeared normal. The patient had a small sliding hiatal hernia. The GE junction was at 38 7 is. The distal esophagus appeared minimally inflamed. A biopsies performed. The proximal esophagus appeared normal. The scope was withdrawn from the patient. Next digital rectal exam was performed. This revealed no abnormalities. The patient a poor colon prep. The flexible was advanced throughout the colon. The scope was then placed into the right colon and there was a large amount of liquid stool seen this limited the view of the mucosa. The scope was then advanced any further. The scope was then withdrawn. The visualized transverse colon descending colon and sigmoid colon appeared normal. Scope was brought ba ck the rectum this appeared normal. The view of the colon was quite limited due to the poor colon prep.
[2023-03-31 09:24] VITALS: PULSE 85
[2023-03-31 09:28] VITALS: BP 156/103; RESP 18
== END 2023-03-31 09:48 | disposition home or self-care (01) ==
LOC: ORWHC2ENDO 07:48
PROVIDERS: ATTEND Surgery
DX: Z12.11 Encounter for screening for malignant neoplasm of colon (principal); K29.50 Unspecified chronic gastritis without bleeding; K44.9 Diaphragmatic hernia without obstruction or gangrene; K21.00 Gastro-esophageal reflux disease with esophagitis, without bleeding; Z80.0 Family history of malignant neoplasm of digestive organs; I10 Essential (primary) hypertension; Z87.39 Personal history of other diseases of the musculoskeletal system and connective tissue; Z90.49 Acquired absence of other specified parts of digestive tract; F17.210 Nicotine dependence, cigarettes, uncomplicated; Z87.11 Personal history of peptic ulcer disease; Z79.1 Long term (current) use of non-steroidal anti-inflammatories (NSAID); Z79.899 Other long term (current) drug therapy; Z88.6 Allergy status to analgesic agent; Z88.1 Allergy status to other antibiotic agents
CPT/HCPCS: 88305; 45378; 43239; J2704; J2001

== ENCOUNTER 2023-04-26 14:17 | Emergency (ER) | payer OTHER ==
[2023-04-26 14:42] VITALS: RESP 18; TEMP 98.4
--- NOTE | 2023-04-26 15:49 | ED ---
Chest Pain HPI - General Chief Complaint: Chest Pain Stated Complaint: Chest Pain,R leg Rash Time Seen by Provider: 04/26/23 15:49 Source: patient, RN notes reviewed, old records reviewed Mode of arrival: ambulatory Limitations: no limitations - History of Present Illness Initial Comments: This is a 63-year-old male to the emergency department for evaluation. Patient is having a fever complaints today. Patient complains of left chest wall pain left sided back pain. Patient has no shortness of breath. Patient states this chest pain back pain began after having his daughter attempt to crack his back. Pain is been significant since. Patient is also complaining of recent lower extremity swelling and edema severe with redness which is currently completely improved but was significant. Family is been trying to get patient to come to the ER for quite some time and is just making it trip today. At this point mostly symptoms are improving and resolved MD Complaint: chest pain, other (Lower extremity edema) -: week(s) Onset: during rest, during exertion Pain Location: left chest Pain Radiation: none Severity: moderate Severity scale (1-10): 7 Quality: sharp Consistency: constant, other (Celia improving) Improves With: nothing Worsens With: nothing Anginal Symptoms: other (0) Other Symptoms: leg swelling Treatments Prior to Arrival: none - Related Data Home Medications Medication Instructions Recorded Confirmed Omeprazole 40 mg PO DAILY 08/06/19 04/26/23 hydrOXYzine HCL [Atarax] 25 mg PO Q6H PRN 08/06/19 04/26/23 cloNIDine HCL [Catapres] 0.3 mg PO HS 11/26/20 04/26/23 Morphine Sulfate [Ms Contin] 30 mg PO Q8H 03/30/23 04/26/23 Cyclobenzaprine [Flexeril] 10 mg PO BID 04/26/23 04/26/23 Losartan Potassium 50 mg PO DAILY 04/26/23 04/26/23 Naproxen [Naprosyn] 500 mg PO BID 04/26/23 04/26/23 Simvastatin [Zocor] 20 mg PO HS 04/26/23 04/26/23 Tamsulosin HCl [Flomax] 0.4 mg PO DAILY 04/26/23 04/26/23 Allergies Allergy/AdvReac Type Severity Reaction Status Date / Time aspirin AdvReac EXCESSIVE Verified 04/26/23 16:00 ASPIRIN CAUSES RASH ANTIBIOTICS AdvReac Unknown STATES Uncoded 04/26/23 16:00 RASH AFTER A FEW DAYS. Review of Systems ROS Statement: Those systems with pertinent positive or pertinent negative responses have been documented in the HPI. ROS Other: All systems not noted in ROS Statement are negative. EKG Findings - EKG Comments: EKG Findings:: EKG is sinus 85 IN 138 QRS 94 QTC 438 - EKG Results: EKG: interpreted by [facility] Past Medical History Past Medical History: GERD/Reflux, Hypertension Additional Past Medical History / Comment(s): DEGENERATIVE DISC DISEASE- NECK & BACK, USES CANE PRN., HIATAL HERNIA, History of Any Multi-Drug Resistant Organisms: None Reported Past Surgical History: Appendectomy, Cholecystectomy, Hernia Repair, Orthopedic Surgery, Tonsillectomy Additional Past Surgical History / Comment(s): LT KNEE ARTHROSCOPY., [facility], COLONOSCOPY, UMBILICAL AND NUVIA INGUINAL HERNIA REPAIR. Past Anesthesia/Blood Transfusion Reactions: No Reported Reaction Past Psychological History: No Psychological Hx Reported Smoking Status: Current every day smoker Past Alcohol Use History: Daily Past Drug Use History: Marijuana - Past Family History Mother Family Medical History: Cancer Additional Family Medical History / Comment(s): LEUKEMIA Father Family Medical History: COPD Additional Family Medical History / Comment(s): Father of COPD. Brother(s) Family Medical History: Cancer Additional Family Medical History / Comment(s): STAGE 4 COLON CANCER General Exam General appearance: alert, in no apparent distress Head exam: Present: atraumatic, normocephalic, normal inspection Eye exam: Present: normal appearance, PERRL, EOMI. Absent: scleral icterus, conjunctival injection, periorbital swelling ENT exam: Present: normal exam, mucous membranes moist Neck exam: Present: normal inspection. Absent: tenderness, meningismus, lymphadenopathy Respiratory exam: Present: normal lung sounds bilaterally. Absent: respiratory distress, wheezes, rales, rhonchi, stridor Cardiovascular Exam: Present: regular rate, normal rhythm, normal heart sounds. Absent: systolic murmur, diastolic murmur, rubs, gallop, clicks GI/Abdominal exam: Present: soft, normal bowel sounds. Absent: distended, tenderness, guarding, rebound, rigid Extremities exam: Present: normal inspection, full ROM, normal capillary refill. Absent: tenderness, pedal edema, joint swelling, calf tenderness Back exam: Present: normal inspection Neurological exam: Present: alert, oriented X3, CN II-XII intact Psychiatric exam: Present: normal affect, normal mood Skin exam: Present: warm, dry, intact, normal color. Absent: rash Course Vital Signs 04/26/23 04/26/23 04/26/23 14:35 15:41 17:40 Temperature 98.4 F Pulse Rate 94 85 90 Respiratory 18 18 18 Rate Blood Pressure 172/97 138/88 163/96 O2 Sat by Pulse 100 100 99 Oximetry - Reevaluation(s) Reevaluation #1: 04/26/23 17:43 Medical records reviewed Reevaluation #2: 04/26/23 17:43 Patient symptoms are improved Reevaluation #3: 04/26/23 17:43 Patient informed results and questions answered 04/26/23 17:44 Studies Chest x-ray negative for acute disease interpreted by me Reevaluation #4: 04/26/23 17:37 Was pt. sent in by a medical professional or institution? @ -no Did you speak to anyone other than the patient for history? @ -no Did you review nursing and triage notes? @ -agree Were old charts reviewed? @ -yes Differential Diagnosis? @ -prior EKG interpreted by me (3pts min.)? @ -yes X-rays interpreted by me (1pt min.)? @ -yes CT interpreted by me (1pt min.)? @ -no U/S interpreted by me (1pt. min.)? @ -no What testing was considered but not performed? (CT, X-rays, U/S, labs)? Why? @ -no What meds were considered but not given? Why? @ -no Did you discuss the management of the patient with other professionals? @ -no Did you reconcile home meds? @ -no Was smoking cessation discussed for >3mins.? @ -no Was critical care preformed (if so, how long)? @ -no Were there social determinants of health that impacted care today? How? (Homelessness, low income, unemployed, alcoholism, drug addiction, transportation, low edu. Level, literacy, decrease access to med. care, long term, rehab)? @ -no Was there de-escalation of care discussed even if they declined? (Discuss DNR or withdrawal of care, Hospice)? @ -no What co-morbidities impacted this encounter? (DM, HTN, Smoking, COPD, CAD, Cancer, CVA, Hep., AIDS, mental health diagnosis, sleep apnea, morbid obesity)? @ -none Was patient admitted / discharged? @ -63 male presenting for chest currently resolved. This pain is worse with palpation, x-ray negative EKG and troponin negative. Chest pain does appear to be related to recent back procedure by patient's daughter. Patient also had resolve lower extremity edema and cellulitis Discharge Undiagnosed new problem with uncertain prognosis? @ -no Drug Therapy requiring intensive monitoring for toxicity (Heparin, Nitro, Insulin, Cardizem)? @ -no Were any procedures done? @ -no Diagnosis/symptom? @ -Chest pain, resolved cellulitis, rib contusion Acute, or Chronic, or Acute on Chronic? @ -acute Uncomplicated (without systemic symptoms) or Complicated (systemic symptoms)? @ -complicated Side effects of treatment? @ -no Exacerbation, Progression, or Severe Exacerbation] @ -no Poses a threat to life or bodily function? @ -yno Reevaluation #5: 04/26/23 17:43 Differential Chest Pain: Stable Angina, Unstable Angina, STEMI, NSTEMI Aortic Dissection, Pneumothorax, Musculoskeletal, Esophageal Spasm GERD, Cholecystitis, Pancreatitis, Zoster, this is not meant to be an all-inclusive list. Chest Pain [facility] 63 male presenting for chest currently resolved. This pain is worse with palpation, x-ray negative EKG and troponin negative. Likely rib contusion from recent procedure of patient's daughter Chest pain does appear to be related to recent back procedure by patient's daughter. Patient also had resolve lower extremity edema and cellulitis, this is now resolved patient was concern for persistent infection. Disposition Clinical Impression: Atypical chest pain, Contusion of rib on right side, Leg edema Disposition: HOME SELF-CARE Condition: Good Instructions (If sedation given, give patient instructions): Chest Pain (ED), Cellulitis (ED), Costochondritis (ED) Is patient prescribed a controlled substance at d/c from ED?: No Referrals: None,Stated [Primary Care Provider] - 1-2 days Time of Disposition: 17:25
[2023-04-26 16:13] LABS: Basophils % (A) 0 %; Eosinophils # (A) 0.2 k/uL (0-0.7); Eosinophils % (A) 2 %; HCT 40.2 % (39.0-53.0); HGB 12.9 gm/dL (13.0-17.5); Lymphocytes # (A) 1.3 k/uL (1.0-4.8); Lymphocytes % (A) 21 %; MCH 30.7 pg (25.0-35.0); MCHC 32.2 g/dL (31.0-37.0); MCV 95.3 fL (80.0-100.0); Mean Platelet Volume 7.3; Monocytes # (A) 0.3 k/uL (0-1.0); Monocytes % (A) 5 %; Neutrophils # (A) 4.3 k/uL (1.3-7.7); Neutrophils % (A) 68 %; Platelet Count 447 k/uL (150-450); RBC 4.21 m/uL (4.30-5.90); RDW 13.3 % (11.5-15.5); WBC 6.3 k/uL (3.8-10.6)
[2023-04-26 16:32] LABS: ALT 18 U/L (4-49); AST 29 U/L (17-59); African American GFR (CKD) >90 (>60 ml/min/1.73 sqM); Albumin 3.3 g/dL (3.5-5.0); Alkaline Phosphatase 128 U/L (38-126); Anion Gap 5 mmol/L; Blood Urea Nitrogen <2 mg/dL (9-20); Calcium 8.5 mg/dL (8.4-10.2); Carbon Dioxide 25 mmol/L (22-30); Chloride 106 mmol/L (98-107); Glucose 76 mg/dL (74-99); Magnesium 1.8 mg/dL (1.6-2.3); Non-African American GFR(CKD) >90 (>60 ml/min/1.73 sqM); Sodium 136 mmol/L (137-145); Total Bilirubin 0.3 mg/dL (0.2-1.3); Total Protein 6.2 g/dL (6.3-8.2)
--- NOTE | 2023-04-26 16:37 | XR ---
EXAMINATION TYPE: XR chest 2V DATE OF EXAM: 04/26/2023 COMPARISON: 11/27/2020 INDICATION: Chest pain TECHNIQUE: Frontal and lateral views of the chest are obtained. FINDINGS: The heart size is normal. The pulmonary vasculature is normal. Some vague increased densities in the right upper lung field. Close follow-up is recommended. Infiltr ate or mass should be considered. IMPRESSION: 1. Right upper lobe infiltrate versus mass. Follow-up to clearing is recommended.
[2023-04-26 16:39] LABS: INR 0.9 (<1.2); Partial Thromboplastin Time 27.5 sec (22.0-30.0); Prothrombin Time 9.6 sec (9.0-12.0)
[2023-04-26 18:15] VITALS: BP 163/96; PULSE 90
== END 2023-04-26 17:40 | disposition home or self-care (01) ==
LOC: EC 14:17
DX: S20.211A Contusion of right front wall of thorax, initial encounter (principal); R07.89 Other chest pain; R60.9 Edema, unspecified; K21.9 Gastro-esophageal reflux disease without esophagitis; I10 Essential (primary) hypertension; F17.200 Nicotine dependence, unspecified, uncomplicated; F12.90 Cannabis use, unspecified, uncomplicated; Z88.1 Allergy status to other antibiotic agents; Z88.6 Allergy status to analgesic agent; Z79.899 Other long term (current) drug therapy; X50.1XXA Overexertion from prolonged static or awkward postures, initial encounter
CPT/HCPCS: 36415; 71046; 80053; 83735; 83880; 84484; 85025; 85610; 85730; 93005; 99285